=== PATIENT | female | born 1930 | race Caucasian/White ===

== ENCOUNTER → 2016-07-17 | Outpatient (CLI) | payer MEDICARE, BC | LOC: YCHH 13:01 | PROVIDERS: ATTEND Family Medicine | DX: N39.0 Urinary tract infection, site not specified (principal); R50.9 Fever, unspecified ==

== ENCOUNTER → 2016-08-04 | Outpatient (CLI) | payer MEDICARE, BC | LOC: YCHH 10:06 | PROVIDERS: ATTEND Family Medicine | DX: D51.8 Other vitamin B12 deficiency anemias (principal); I10 Essential (primary) hypertension; E78.5 Hyperlipidemia, unspecified; D64.9 Anemia, unspecified; D50.9 Iron deficiency anemia, unspecified; R79.89 Other specified abnormal findings of blood chemistry; E03.9 Hypothyroidism, unspecified; N39.0 Urinary tract infection, site not specified ==

== ENCOUNTER → 2016-08-14 | Outpatient (CLI) | payer MEDICARE, BC | END | disposition home or self-care (01) | LOC: GMAM 10:37 | PROVIDERS: ATTEND Family Medicine | DX: N39.0 Urinary tract infection, site not specified (principal) ==

== ENCOUNTER → 2016-09-07 | Outpatient (CLI) | payer MEDICARE, BC | END | disposition home or self-care (01) | LOC: GMAM 09:57 | PROVIDERS: ATTEND Family Medicine | DX: N39.0 Urinary tract infection, site not specified (principal); R11.0 Nausea ==

== ENCOUNTER → 2016-09-09 | Outpatient (CLI) | payer MEDICARE, BC | END | disposition home or self-care (01) | LOC: YCHH 14:57 | PROVIDERS: ATTEND Family Medicine | DX: R70.0 Elevated erythrocyte sedimentation rate (principal); R79.82 Elevated C-reactive protein (CRP) ==

== ENCOUNTER → 2016-09-10 | Outpatient (CLI) | payer MEDICARE, BC ==
--- NOTE | 2016-09-10 09:24 | CT ---
EXAM DESCRIPTION: Abdomen/Pelvis w/wo Contrast CLINICAL HISTORY: ABDOMINAL PAIN COMPARISON: None. TECHNIQUE: CT of the abdomen and pelvis was performed with and without IV contrast. Multiple axial images and multiplanar reconstructions were generated. FINDINGS: Lung bases are clear. Moderate hiatal hernia noted. The spleen, bilateral adrenal glands and liver are unremarkable. Gallbladder is present. The pancreas is unremarkable. Atherosclerotic disease of the abdominal aorta and IVC. The small bowel is nonobstructed. Severe diverticulosis of the colon noted. Patient status post hysterectomy. S-shaped scoliosis of the thoracolumbar spine noted. IMPRESSION: 1. There is atherosclerosis of the nonaneurysmal abdominal aorta, diverticulosis of the colon and spondylosis of the thoracolumbar spine. 2. Moderate-sized hiatal hernia. 3. No inflammatory changes within the abdomen or pelvis to account for patient's abdominal pain. Electronically signed by: Ronal Nails MD 09/10/2016 9:23 AM DIRECTOR OF CONSTRUCTION
== END | disposition home or self-care (01) ==
LOC: CT 07:52
PROVIDERS: ATTEND Family Medicine
DX: K57.30 Diverticulosis of large intestine without perforation or abscess without bleeding (principal)

== ENCOUNTER → 2017-01-30 | Outpatient (CLI) | payer MEDICARE, BC | LOC: YCHH 18:47 | PROVIDERS: ATTEND Family Medicine | DX: N39.0 Urinary tract infection, site not specified (principal) ==

== ENCOUNTER 2017-01-31 08:56 | Emergency (ER) | payer MEDICARE, BC ==
[2017-01-31] MEDS ORDERED: ONDANSETRON INJ 4 MG/2 ML VIAL IV ONE (09:10)
[2017-01-31] MEDS ORDERED: SODIUM CHLORIDE 0.9% 1000ML 1,000 ML IVS ONE (09:10)
--- NOTE | 2017-01-31 09:15 | ED.PDOC ---
History of Present Illness - General Chief Complaint: Fever Stated Complaint: weakness, fever Time Seen by Provider: 01/31/17 09:01 Source: patient, RN notes reviewed, Vital Signs reviewed, family - and sister Exam Limitations: no limitations - History of Present Illness Initial Comments: Patient comes in with c/o of UTI and not feeling well. She was seen by home health yesterday and had a UA done which was + for Nitrates & bacteria. No medications started. She has had a low grade fever, malaise, bodyaches, nausea and dysuria for 2 days. She has a history of frequent UTI's and is on Macrobid daily. Timing/Duration: getting worse - over past 2 days Severity: moderate Improving Factors: nothing Worsening Factors: nothing Associated Symptoms: fever/chills, loss of appetite, malaise, nausea/vomiting, weakness Allergies/Adverse Reactions: Allergies Ciprofloxacin [From Cipro] Allergy (Verified 06/14/16 09:41) Nausea Codeine Adverse Reaction (Verified 06/14/16 09:41) Home Medications: Ambulatory Orders Celecoxib [Celebrex] 200 mg PO DAILY 03/23/13 Aspirin [Aspirin EC] 81 mg PO BEDTIME 03/01/15 Bifidobacterium Infantis [Align] 4 mg PO DAILY 03/01/15 HYDROcodone 10MG/APAP 325MG [[place] 10/325] 1 tab PO QID PRN 03/01/15 Cyanocobalamin Inj [Vitamin B-12 Inj] 1,000 mcg IM MONTHLY 05/05/16 Lisinopril 10 mg PO DAILY PRN 05/05/16 Memantine HCl [Namenda] 5 mg PO DAILY 05/05/16 Multiple Vitamin [Multi Vitamin] 1 tab PO DAILY 05/05/16 Pantoprazole Tablet [Protonix] 40 mg PO DAILY 05/05/16 Calcium 600 mg PO BEDTIME 06/14/16 Pregabalin [Lyrica] 100 mg PO BEDTIME 06/14/16 Sulfa/Trimeth 800/160 (Ds) Tab [Bactrim DS Tab] 1 ea PO BID #14 tab 01/31/17 Review of Systems - Review of Systems Constitutional: States: chills, fever, malaise, weakness Respiratory: States: no symptoms reported Cardiology: States: no symptoms reported Gastrointestinal/Abdominal: States: nausea. Denies: abdominal pain, diarrhea, vomiting Genitourinary: States: see HPI, dysuria, frequency, pain Musculoskeletal: States: see HPI - Body aches Skin: States: no symptoms reported Neurological: States: no symptoms reported All other Systems: No Change from Baseline Past Medical History (General) - Patient Medical History Hx Seizures: No Hx Stroke: No Hx Dementia: Yes Hx Asthma: No Hx of COPD: No Hx Cardiac Disorders: Yes - CT with CABG Hx Congestive Heart Failure: No Hx Pacemaker: No Hx Hypertension: Yes Hx Thyroid Disease: No Hx Diabetes: No Hx Gastroesophageal Reflux: Yes Hx Renal Disease: No Hx Cancer: No Hx of HIV: No Hx Hepatitis C: No Hx MRSA: No - Vaccination History Hx Tetanus, Diphtheria Vaccination: Yes Hx Influenza Vaccination: Yes Hx Pneumococcal Vaccination: Yes - Social History Hx Tobacco Use: No Hx Chewing Tobacco Use: No Hx Alcohol Use: No Hx Substance Use: No Hx Substance Use Treatment: No Hx Depression: No Hx Physical Abuse: No Hx Emotional Abuse: No Hx Suspected Abuse: No - Female History Patient : No Family Medical History - Family History Mother Family History: Unknown Name: Jazz Puri Age (years): 87 Living Status: Age at (years of age): 87 Cause of : unknown Hx Family Asthma: No Hx Family Congestive Heart Failure: Yes - Parents Hx Family Hypertension: Yes - Parents Hx Family Stroke: No Hx Cardiac Disease: Yes - Parents Hx Family Diabetes: No Hx Family Cancer: No Physical Exam - Physical Exam General Appearance: Alert, Comfortable, Frail, No apparent distress, Well Developed, Well Groomed, Well Nourished Neck: non-tender, supple, normal inspection Respiratory: chest non-tender, lungs clear, normal breath sounds, no respiratory distress, no accessory muscle use Cardiovascular/Chest: regular rate, rhythm, no edema, no JVD, systolic murmur Gastrointestinal/Abdominal: normal bowel sounds, soft, tenderness - mild, suprapubic tenderness w/o guarding or rebound Extremity: normal range of motion, normal inspection Neurologic: alert, normal mood/affect, oriented x 3 Skin Exam: normal color, warm/dry Comments: Vital Signs 01/31/17 09:03 Temperature 98.1 F Pulse Rate [ 87 Left Radial] Respiratory 16 Rate Blood Pressure 178/84 [Left Arm] O2 Sat by Pulse 98 Oximetry Progress - Results/Orders Results/Orders: Laboratory Tests 01/31/17 01/31/17 09:19 09:19 WBC 8.3 RBC 4.47 Hgb 13.8 Hct 41.1 MCV 91.9 MCH 30.8 MCHC 33.5 RDW 13.1 Plt Count 341 MPV 9.3 Absolute Neuts (auto) 6.30 Absolute Lymphs (auto) 1.20 Absolute Monos (auto) 0.70 Absolute Eos (auto) 0.10 Absolute Basos (auto) 0.10 Neutrophils % 75.5 Lymphocytes % 14.4 L Monocytes % 8.0 Eosinophils % 1.2 Basophils % 0.9 Sodium 137 Potassium 3.7 Chloride 100 L Carbon Dioxide 26 Anion Gap 14.7 BUN 10 Creatinine 0.87 BUN/Creatinine Ratio 11.5 Random Glucose 120 H Serum Osmolality 274.1 L Calcium 9.7 Total Bilirubin 0.9 AST 25 ALT 15 Alkaline Phosphatase 54 Serum Total Protein 7.5 Albumin 4.6 Globulin 2.9 Albumin/Globulin Ratio 1.6 Urine Culture from yesterday is growing Gram negative rods. Started on Bactrim DS Departure - Departure Clinical Impression: UTI (urinary tract infection) Qualifiers: Urinary tract infection type: acute cystitis Hematuria presence: without hematuria Qualified Code(s): N30.00 - Acute cystitis without hematuria Time of Disposition: 10:43 Disposition: Discharge to Home or Self Care Condition: Good Departure Forms: ED Discharge - Pt. Copy, Patient Portal Self Enrollment Instructions: DI for Urinary Tract Infection (UTI) Diet: resume usual diet Activity: increase activity as tolerated Referrals: Pankaj Goetz MD [Primary Care Provider] - 1-2 Weeks Prescriptions: Sulfa/Trimeth 800/160 (Ds) Tab [Bactrim DS Tab] 1 ea PO BID #14 tab Home Medications: Ambulatory Orders Celecoxib [Celebrex] 200 mg PO DAILY 03/23/13 Aspirin [Aspirin EC] 81 mg PO BEDTIME 03/01/15 Bifidobacterium Infantis [Align] 4 mg PO DAILY 03/01/15 HYDROcodone 10MG/APAP 325MG [[place] 10/325] 1 tab PO QID PRN 03/01/15 Cyanocobalamin Inj [Vitamin B-12 Inj] 1,000 mcg IM MONTHLY 05/05/16 Lisinopril 10 mg PO DAILY PRN 05/05/16 Memantine HCl [Namenda] 5 mg PO DAILY 05/05/16 Multiple Vitamin [Multi Vitamin] 1 tab PO DAILY 05/05/16 Pantoprazole Tablet [Protonix] 40 mg PO DAILY 05/05/16 Calcium 600 mg PO BEDTIME 06/14/16 Pregabalin [Lyrica] 100 mg PO BEDTIME 06/14/16 Sulfa/Trimeth 800/160 (Ds) Tab [Bactrim DS Tab] 1 ea PO BID #14 tab 01/31/17
[2017-01-31] MEDS ORDERED: SULFA/TRIMETH 800/160 (DS) TAB 1 EA TAB PO ONE (09:42)
[2017-01-31 10:49] VITALS: BP 157/88; TEMP 99.1; O2SAT 98
== END 2017-01-31 10:57 | disposition home or self-care (01) ==
LOC: ER 08:56
DX: N30.00 Acute cystitis without hematuria (principal); I25.2 Old myocardial infarction; F03.90 Unspecified dementia, unspecified severity, without behavioral disturbance, psychotic disturbance, mood disturbance, and anxiety; I10 Essential (primary) hypertension; K21.9 Gastro-esophageal reflux disease without esophagitis; Z95.1 Presence of aortocoronary bypass graft; Z88.3 Allergy status to other anti-infective agents; Z88.6 Allergy status to analgesic agent; Z79.82 Long term (current) use of aspirin; Z79.899 Other long term (current) drug therapy
CPT/HCPCS: 36415; 80053; 85025; J2405; J7030

== ENCOUNTER → 2017-02-11 | Outpatient (CLI) | payer MEDICARE, BC | END | disposition home or self-care (01) | LOC: YCHH 11:38 | PROVIDERS: ATTEND Family Medicine | DX: N39.0 Urinary tract infection, site not specified (principal) ==

== ENCOUNTER → 2017-02-15 | Outpatient (CLI) | payer MEDICARE, BC | END | disposition home or self-care (01) | LOC: YCHH 15:52 | PROVIDERS: ATTEND Family Medicine | DX: N39.0 Urinary tract infection, site not specified (principal) ==

== ENCOUNTER → 2017-03-17 | Outpatient (CLI) | payer MEDICARE, BC | END | disposition home or self-care (01) | LOC: YCHH 16:34 | PROVIDERS: ATTEND Family Medicine | DX: N39.0 Urinary tract infection, site not specified (principal) ==

== ENCOUNTER → 2017-03-23 | Outpatient (CLI) | payer MEDICARE, BC | END | disposition home or self-care (01) | LOC: YCHH 09:42 | PROVIDERS: ATTEND Family Medicine | DX: D64.9 Anemia, unspecified (principal); E78.5 Hyperlipidemia, unspecified; I10 Essential (primary) hypertension; K21.9 Gastro-esophageal reflux disease without esophagitis ==

== ENCOUNTER → 2017-04-19 | Outpatient (CLI) | payer MEDICARE, BC | END | disposition home or self-care (01) | LOC: YCHH 11:41 | PROVIDERS: ATTEND Family Medicine | DX: N39.0 Urinary tract infection, site not specified (principal) ==

== ENCOUNTER → 2017-04-20 | Outpatient (CLI) | payer MEDICARE, BC ==
--- NOTE | 2017-04-21 14:05 | RAD ---
Frontal view pelvis and two-view left hip. Indication: PAIN IN LT HIP Comparison: February 25, 2016 Impression: Osteopenia. Given this limitation, no discrete fracture of the pelvis or the left hip identified. If high clinical concern for fracture, correlation with MRI or CT recommended. Mild bilateral hip osteoarthritis. Mild bilateral sacroiliac joint osteoarthritis. Lower lumbar disc disease. Electronically signed by: Og Li MD 04/21/2017 2:04 PM CDT
== END | disposition home or self-care (01) ==
LOC: RAD 14:09
PROVIDERS: ATTEND Orthopaedic Surgery
DX: M25.552 Pain in left hip (principal)

== ENCOUNTER → 2017-05-19 | Outpatient (CLI) | payer MEDICARE, BC | END | disposition home or self-care (01) | LOC: YCHH 10:13 | PROVIDERS: ATTEND Family Medicine | DX: N39.0 Urinary tract infection, site not specified (principal) ==

== ENCOUNTER → 2017-06-05 | Outpatient (CLI) | payer MEDICARE, BC | END | disposition home or self-care (01) | LOC: YCHH 14:24 | PROVIDERS: ATTEND Family Medicine | DX: N39.0 Urinary tract infection, site not specified (principal) ==

== ENCOUNTER → 2017-07-10 | Outpatient (CLI) | payer MEDICARE, BC | END | disposition home or self-care (01) | LOC: YCHH 12:26 | PROVIDERS: ATTEND Family Medicine | DX: N39.0 Urinary tract infection, site not specified (principal) ==

== ENCOUNTER → 2017-08-03 | Outpatient (CLI) | payer MEDICARE, BC | LOC: GMAM 18:07 | PROVIDERS: ATTEND Family Medicine | DX: F03.90 Unspecified dementia, unspecified severity, without behavioral disturbance, psychotic disturbance, mood disturbance, and anxiety (principal); R30.0 Dysuria ==

== ENCOUNTER 2017-08-06 10:38 | Outpatient (CLI) | payer MEDICARE, BC ==
[2017-08-06] MEDS ORDERED: methylPREDNISolone SODIUM SUC 40 MG/ML VIAL IV ONE ×2 (10:58→14:23)
[2017-08-06] MEDS ORDERED: ACETAMINOPHEN 325 MG TAB PO ONE ×2 (11:04→14:23)
[2017-08-06] MEDS ORDERED: SODIUM CHLORIDE 0.9% 500ML 500 ML IVS ONE (11:07)
[2017-08-06] MEDS ORDERED: FUROSEMIDE INJ 40 MG/4 ML VIAL IV ONE ×2 (11:11→17:36)
[2017-08-06] MEDS ORDERED: diphenhydrAMINE HCL 50 MG/ML VIAL IV ONE ×2 (12:02→14:23)
[2017-08-06 20:56] VITALS: BP 133/79; TEMP 96.4; O2SAT 96
== END 2017-08-06 20:55 | disposition home or self-care (01) ==
LOC: TXRM 10:38
PROVIDERS: ATTEND Family Medicine
DX: D64.9 Anemia, unspecified (principal)
CPT/HCPCS: 36415; 86850; 86900; 86901; 86922; G0463; J1030; J1200; J1940; J7040; P9016

== ENCOUNTER → 2017-08-12 | Outpatient (CLI) | payer MEDICARE, BC | LOC: GMAM 19:13 | PROVIDERS: ATTEND Family Medicine | DX: D64.9 Anemia, unspecified (principal) ==

== ENCOUNTER → 2017-08-19 | Outpatient (CLI) | payer MEDICARE, BC | LOC: YCHH 11:19 | PROVIDERS: ATTEND Family Medicine | DX: D64.9 Anemia, unspecified (principal) ==

== ENCOUNTER → 2017-09-13 | Outpatient (CLI) | payer MEDICARE, BC | LOC: GMAM 12:06 | PROVIDERS: ATTEND Family Medicine | DX: R30.0 Dysuria (principal); N39.0 Urinary tract infection, site not specified ==

== ENCOUNTER → 2017-09-21 | Outpatient (CLI) | payer MEDICARE, BC | LOC: GMAHI 16:42 | PROVIDERS: ATTEND Nurse Practitioner Family | DX: N30.00 Acute cystitis without hematuria (principal) ==

== ENCOUNTER → 2017-10-25 | Outpatient (CLI) | payer MEDICARE, BC | LOC: YCHH 12:32 | PROVIDERS: ATTEND Family Medicine | DX: D64.9 Anemia, unspecified (principal); R79.89 Other specified abnormal findings of blood chemistry; N39.0 Urinary tract infection, site not specified ==

== ENCOUNTER 2017-11-01 05:33 | Observation (INO) | payer MEDICARE, BC ==
--- NOTE | 2017-11-01 05:46 | ED.PDOC ---
History of Present Illness - General Source: patient, family - Exam Limitations: no limitations - History of Present Illness Initial Comments: Laura Suresh ,87 y/o female brought by family w/bodyaches generalized has chronic back pains,restless, did not sleep last night ,felt nauseated but no vomiting .Had iron infusion 3 days ago for her chronic anemia and taking Macrobid for UTI.She has DNR signed by patient. Timing/Duration: 24 hours Severity: moderate Improving Factors: nothing Worsening Factors: other - see hpi Associated Symptoms: other - see hpi <Scar Shahid R - Last Filed: 11/01/17 06:01> <Vish Kc H - Last Filed: 11/01/17 12:35> - General Chief Complaint: General Stated Complaint: restless,hurting all over Time Seen by Provider: 11/01/17 05:39 - History of Present Illness Allergies/Adverse Reactions: Allergies Ciprofloxacin [From Cipro] Allergy (Verified 06/14/16 09:41) Nausea Codeine Adverse Reaction (Verified 06/14/16 09:41) Home Medications: Ambulatory Orders Celecoxib [Celebrex] 200 mg PO DAILY 03/23/13 Aspirin [Aspirin EC] 81 mg PO BEDTIME 03/01/15 Bifidobacterium Infantis [Align] 4 mg PO DAILY 03/01/15 HYDROcodone 10MG/APAP 325MG [[place] 10/325] 1 tab PO QID PRN 03/01/15 Cyanocobalamin Inj [Vitamin B-12 Inj] 1,000 mcg IM MONTHLY 05/05/16 Lisinopril 10 mg PO DAILY PRN 05/05/16 Memantine HCl [Namenda] 5 mg PO DAILY 05/05/16 Multiple Vitamin [Multi Vitamin] 1 tab PO DAILY 05/05/16 Pantoprazole Tablet [Protonix] 40 mg PO DAILY 05/05/16 Calcium 600 mg PO BEDTIME 06/14/16 Pregabalin [Lyrica] 100 mg PO BEDTIME 06/14/16 Nitrofurantoin Macrocrystal [Macrodantin] 100 mg PO 11/01/17 Review of Systems - Review of Systems Constitutional: States: malaise EENTM: States: no symptoms reported Respiratory: States: no symptoms reported Cardiology: States: no symptoms reported Gastrointestinal/Abdominal: States: no symptoms reported Genitourinary: States: no symptoms reported, see HPI Musculoskeletal: States: no symptoms reported Skin: States: no symptoms reported Neurological: States: no symptoms reported Hematologic/Lymphatic: States: see HPI, anemia All other Systems: Reviewed and Negative, No Change from Baseline <Scar Shahid R - Last Filed: 11/01/17 06:01> Past Medical History (General) - Patient Medical History Hx Seizures: No Hx Stroke: No Hx Dementia: Yes Hx Asthma: No Hx of COPD: No Hx Cardiac Disorders: Yes - PR with CABG Hx Congestive Heart Failure: No Hx Pacemaker: No Hx Hypertension: Yes Hx Thyroid Disease: No Hx Diabetes: No Hx Gastroesophageal Reflux: Yes Hx Renal Disease: No Hx Cancer: No Hx of HIV: No Hx Hepatitis C: No Hx MRSA: No Surgical History: appendectomy, coronary bypass surgery, other - right knee ankle - Vaccination History Hx Tetanus, Diphtheria Vaccination: Yes Hx Influenza Vaccination: Yes Hx Pneumococcal Vaccination: Yes - Social History Hx Tobacco Use: No Hx Chewing Tobacco Use: No Hx Alcohol Use: No Hx Substance Use: No Hx Substance Use Treatment: No Hx Depression: No Hx Physical Abuse: No Hx Emotional Abuse: No Hx Suspected Abuse: No - Activities of Daily Living Patient Lives Alone: No Grooming Ability: Standby Assistance Eating (Feeding) Ability: Standby Assistance Toileting Ability: Standby Assistance - Female History Patient : No <Scar Shahid R - Last Filed: 11/01/17 06:01> Family Medical History - Family History Mother Family History: Unknown Name: Jazz Puri Age (years): 87 Living Status: Age at (years of age): 87 Cause of : unknown Hx Family Asthma: No Hx Family Congestive Heart Failure: Yes - Parents Hx Family Hypertension: Yes - Parents Hx Family Stroke: No Hx Cardiac Disease: Yes - Parents Hx Family Diabetes: No Hx Family Cancer: No <Scar Shahid R - Last Filed: 11/01/17 06:01> Physical Exam - Physical Exam General Appearance: Alert, No apparent distress Eye Exam: bilateral normal Ears, Nose, Throat: hearing grossly normal, normal ENT inspection Neck: non-tender, supple Respiratory: chest non-tender, lungs clear, normal breath sounds Cardiovascular/Chest: normal peripheral pulses, regular rate, rhythm, systolic murmur - g4/6 Peripheral Pulses: radial,right: 2+, radial,left: 2+ Gastrointestinal/Abdominal: soft, no organomegaly Back Exam: no CVA tenderness, no vertebral tenderness Extremity: no pedal edema, no calf tenderness Neurologic: alert, oriented x 3 Skin Exam: normal color, warm/dry <Scar Shahid R - Last Filed: 11/01/17 06:01> Progress - Progress Progress: 11/01/17 06:30 Vital Signs - 8 hr 11/01/17 11/01/17 05:56 06:03 Temperature 99.1 F Pulse Rate [ 98 H Right] Respiratory 18 18 Rate Blood Pressure 150/70 [Left Arm] O2 Sat by Pulse 93 L Oximetry <Scar Shahid R - Last Filed: 11/01/17 06:01> - Progress Progress: 11/01/17 8:30 PT IS RESTING COMFORTABLY, VITALS REMAIN UNCHANGED. DISCUSSED PLAN WITH PT AND FAMILY TO TRANSFUSE PRBC. 11/01/17 12:15 STOOL GUIAC TESTING DONE REVEALING DARK TARRY STOOL-HEMMOCULT POSITIVE - Results/Orders Results/Orders: 11/01/17 06:02 IV Care:Saline Lock per Protoc QSHIFT Laboratory Results - last 24 hr 11/01/17 11/01/17 11/01/17 06:02 06:02 06:30 WBC 9.2 RBC 2.68 L Hgb 7.1 L* Hct 21.6 L MCV 80.7 L MCH 26.4 L MCHC 32.8 L RDW 19.0 H Plt Count 313 MPV 9.7 Absolute Neuts (auto) 7.50 H Absolute Lymphs (auto) 0.70 L Absolute Monos (auto) 0.70 Absolute Eos (auto) 0.20 Absolute Basos (auto) 0.10 Neutrophils % 81.6 H Lymphocytes % 7.9 L Monocytes % 7.5 Eosinophils % 2.3 Basophils % 0.7 Sodium 137 Potassium 3.8 Chloride 106 Carbon Dioxide 26 Anion Gap 8.8 L BUN 14 Creatinine 0.82 BUN/Creatinine Ratio 17.1 Random Glucose 121 H Serum Osmolality 275.5 Calcium 8.7 Total Bilirubin 0.5 AST 23 ALT 13 Alkaline Phosphatase 51 Serum Total Protein 6.5 Albumin 3.8 Globulin 2.7 Albumin/Globulin Ratio 1.4 Urine Color Urine Appearance Urine pH Ur Specific [place] Urine Protein Urine Glucose (UA) Urine Ketones Urine Blood Urine Nitrite Urine Bilirubin Urine Urobilinogen Ur Leukocyte Esterase Urine RBC Urine WBC Ur Epithelial Cells Urine Bacteria Stool Occult Blood Patient ABO/Rh A NEGATIVE Antibody Screen Negative Crossmatch See Detail 11/01/17 11/01/17 11:57 Unknown WBC RBC Hgb Hct MCV MCH MCHC RDW Plt Count MPV Absolute Neuts (auto) Absolute Lymphs (auto) Absolute Monos (auto) Absolute Eos (auto) Absolute Basos (auto) Neutrophils % Lymphocytes % Monocytes % Eosinophils % Basophils % Sodium Potassium Chloride Carbon Dioxide Anion Gap BUN Creatinine BUN/Creatinine Ratio Random Glucose Serum Osmolality Calcium Total Bilirubin AST ALT Alkaline Phosphatase Serum Total Protein Albumin Globulin Albumin/Globulin Ratio Urine Color Yellow Urine Appearance Clear Urine pH 7.0 Ur Specific [place] 1.015 Urine Protein Negative Urine Glucose (UA) Negative Urine Ketones 15 H Urine Blood Negative Urine Nitrite Negative Urine Bilirubin Negative Urine Urobilinogen 0.2 Ur Leukocyte Esterase Negative Urine RBC 0 Urine WBC 0 Ur Epithelial Cells 0 Urine Bacteria 0 Stool Occult Blood Positive Patient ABO/Rh Antibody Screen Crossmatch - Consult/PCP Time Called: 09:30 Consult/PCP: DR. ANJELICA GOETZ Consult Reason/Comments: CASE DISCUSSED. AGREES WITH PLAN TO TRANSFUSE. WILL COME TO ED SEE PT. <Vish Kc H - Last Filed: 11/01/17 12:35> Departure <Scar Shahid - Last Filed: 11/01/17 06:01> - Departure Time of Disposition: 12:34 <Vish Kc - Last Filed: 11/01/17 12:35> - Departure Clinical Impression: Weakness, Myalgia, GI bleed, Anemia Disposition: Admit Patient Condition: Fair Departure Forms: ED Discharge - Pt. Copy, Patient Portal Self Enrollment Referrals: Pankaj Goetz MD [Primary Care Provider] - 1-2 Weeks Home Medications: Ambulatory Orders Celecoxib [Celebrex] 200 mg PO DAILY 03/23/13 Aspirin [Aspirin EC] 81 mg PO BEDTIME 03/01/15 Bifidobacterium Infantis [Align] 4 mg PO DAILY 03/01/15 HYDROcodone 10MG/APAP 325MG [[place] 10/325] 1 tab PO QID PRN 03/01/15 Cyanocobalamin Inj [Vitamin B-12 Inj] 1,000 mcg IM MONTHLY 05/05/16 Lisinopril 10 mg PO DAILY PRN 05/05/16 Memantine HCl [Namenda] 5 mg PO DAILY 05/05/16 Multiple Vitamin [Multi Vitamin] 1 tab PO DAILY 05/05/16 Pantoprazole Tablet [Protonix] 40 mg PO DAILY 05/05/16 Calcium 600 mg PO BEDTIME 06/14/16 Pregabalin [Lyrica] 100 mg PO BEDTIME 06/14/16 Nitrofurantoin Macrocrystal [Macrodantin] 100 mg PO 11/01/17 Decision To Admit - Decistion To Admit Decision to Admit Reason: Admit from ER Decision to Admit Date: 11/01/17 Decision to Admit Time: 12:35 - CASE DISCUSSED WITH DR. GOETZ AND CRISTIAN HIDALGO ATLASSIAN ADMINISTRATOR WHO AGREE TO ADMIT. <Vish Kc - Last Filed: 11/01/17 12:35>
[2017-11-01] MEDS ORDERED: fentaNYL CITRATE INJ 50 MCG/ML AMP IV ONE ×3 (06:02→13:51)
[2017-11-01] MEDS ORDERED: LORazepam 0.5 MG TAB PO ONE (06:32)
[2017-11-01] MEDS ORDERED: SODIUM CHLORIDE 0.9% 500ML 500 ML ONE (07:55)
[2017-11-01] MEDS ORDERED: fentaNYL CITRATE INJ 50 MCG/ML AMP ONE (11:09)
[2017-11-01] MEDS ORDERED: ONDANSETRON INJ 4 MG/2 ML VIAL IV ONE (12:48)
--- NOTE | 2017-11-01 13:46 | HP ---
SUPERVISING PHYSICIAN: Pankaj Goetz MD CHIEF COMPLAINT: Anemia. HISTORY OF PRESENT ILLNESS: Ms. Suresh is an 87-year-old, female patient who presented to the Emergency Room with her family by private vehicle complaining of generalized body aches and some chronic back pain. She had noted she had some nausea, but has not had any emesis. She has a history of iron deficiency anemia and has recently started iron infusions three days previously and is also taking Macrobid for a previous urinary tract infection. Her lab work in the Emergency Room showed she is significantly anemic with a hemoglobin 7.1, hematocrit 21.6, platelet count 313,000. Differential did show a slight left shift. White count was within normal limits at 9,200. Chemistries were unremarkable. Urinalysis showed 15 ketones, otherwise within normal limits. She had a workup in blood bank and was transfused 2 units of packed red blood cells in the Emergency Room with anticipation of being discharged home with close followup, but while in the Emergency Room had a large , black, tarry stool bowel movement and it was positive for occult blood. Dr. Kc, Emergency Room physician, discussed the case with Dr. Goetz, her primary care physician, and it was felt best that the patient be placed in observation status overnight to further monitor her hemoglobin and hematocrit and ensure that she was not having an acute blood loss event. She was placed in observation in stable condition. PAST MEDICAL HISTORY: 1. Chronic anemia due to iron deficiency. 2. Recurring urinary tract infections, recently on Macrobid. 3. Coronary artery disease with a history of myocardial infarctions and her last echocardiogram showing ejection fraction of 60% from July of 2013. 4. Hyperlipidemia. 5. Hypertension. 6. Aortic valve stenosis with a significant cardiac murmur. 7. Diverticulosis. 8. Osteoarthritis. 9. Cervical spine stenosis. 10. Mild dementia. 11. Infectious colitis. PAST SURGICAL HISTORY: 1. Coronary artery bypass grafting of three vessels in 2004 and again in 2011. 2. Ankle replacement in September 2004. 3. Hysterectomy with bilateral salpingo-oophorectomy in 1971. 4. Multiple epidural injections of the spine for chronic pain management. 5. Right total knee arthroplasty in 2011. CURRENT MEDICATIONS: 1. Multivitamin 1 tablet daily. 2. [place] 10/325 1 tablet q.i.d. as needed for pain. 3. Vitamin B12 injection 1000 mcg monthly. 4. Lyrica 100 mg t.i.d. 5. Protonix 40 mg daily. 6. Namenda 5 mg daily. 7. Lisinopril 10 mg daily. 8. Celebrex 200 mg daily. 9. Calcium 600 mg at bedtime. 10. Align 4 mg daily. 11. Aspirin 81 mg daily. ALLERGIES: CIPROFLOXACIN. FAMILY HISTORY: Positive for congestive heart failure, coronary artery disease and cancers. SOCIAL HISTORY: The patient lives in [place] with her . She is retired. She has never smoked, nor has she ever used illicit drugs or alcohol. REVIEW OF SYSTEMS: CONSTITUTIONAL: Positive for general malaise and weakness. HEENT: No reported nasal congestion, sore throat, headache, earaches. RESPIRATORY: No shortness of breath, cough, wheezing. CARDIOVASCULAR: Denies lower extremity edema, chest pain, palpitations or syncopal episodes. GASTROINTESTINAL: As noted in history of present illness, some nausea with no vomiting. No reported abdominal pain. No reported constipation, diarrhea. MUSCULOSKELETAL: She has problems with restless legs, generalized malaise and chronic back pain. NEUROLOGIC: Denies syncope, seizures, ataxia or other neurologic symptoms. HEMATOLOGIC: As noted in history of present illness, chronic anemia, iron deficiency, with having recent iron infusion within the last three days. PHYSICAL EXAMINATION: VITAL SIGNS: Temperature 99.6. Pulse 86. Blood pressure 166/62. Saturation 94 %. Respirations 20. Weight 73.0 kg on admission. GENERAL: On examination on the Medical/Surgical Floor, the patient was quite anxious, restless, but appeared to be in no acute distress. She was well hydrated and alert. HEENT: Tympanic membranes clear bilaterally. Oropharynx is pink, moist without any lesions. NECK: Supple, nontender with full range of motion. No jugular venous distention noted. RESPIRATORY: Lungs clear to auscultation bilaterally without any rhonchi, wheezes, or rales. CARDIOVASCULAR: Regular rate and rhythm with a prominent systolic murmur, grade IV/, which is chronic. ABDOMEN: Soft, nontender. Positive bowel sounds. EXTREMITIES: There is no cyanosis, clubbing or edema. No calf tenderness. NEUROLOGIC: The patient is alert and oriented times three. Cranial nerves II- XII are grossly intact. Facial features are symmetrical. Extraocular movements are within normal limits. There is no nystagmus noted. LABORATORY: CBC showed white count 9,200, hemoglobin 7.1, hematocrit 21.6 with a macrocytic/hypochromic RBC presentation and platelet count 313,000. Differential did show a slight left shift. Chemistries showed normal electrolytes. BUN 14, creatinine 0.82, glucose 121, liver functions all within normal limits. Calcium within normal limits at 8.7. Urinalysis shows 15 ketones, otherwise within normal limits. She had one occult blood stool in the Emergency Room that was positive. MICROBIOLOGY: There were no specimens submitted. RADIOLOGY: No radiographic studies were submitted. ASSESSMENT: 1. Symptomatic anemia secondary to chronic iron deficiency anemia having recently started iron transfusions with occult blood being positive with concerns for acute blood loss requiring close monitoring. 2. History of recurrent urinary tract infections having recently finished a round of Macrobid with current urine being without evidence of infection. 3. Coronary artery disease with a history of previous myocardial infarctions and last ejection fraction noted on the chart of 60% in July of 2013. 4. Aortic valve stenosis with a significant cardiac murmur. 5. Hypertension. 6. Chronic back pain. 7. Chronic dementia with disability. PLAN: The patient will be placed in observation status tonight for close monitoring of her vital signs and repeat hemoglobin and hemoglobin at 12 hours and in the morning to ensure she is not having any acute blood loss. I have ordered occult bloods times three if she has any stools. She will be given pain management as needed for back pain and Benadryl and 20 mg Lasix post transfusion. We will resume her home medications once they have been updated and verified. She will be on DVT prophylaxis with SCDs only with concerns for lower GI bleed pending further workup before Lovenox is started. We will anticipate her stay to be 1 to 2 days with anticipation of discharging tomorrow if her hemoglobin and hematocrit are stable. Once discharged, she will continue with followup in the outpatient clinic with Dr. Goetz, her primary care provider. Until then, we will continue to monitor the patient closely and treat appropriately. #[id number] [facility]
[2017-11-01] MEDS ORDERED: PROMETHAZINE HCL INJ 12.5 MG in SODIUM CHLORIDE 0.9% 50ML 50 ML IVPB PRN (13:52)
[2017-11-01] MEDS ORDERED: PROMETHAZINE HCL INJ 25 MG/ML VIAL ONE (13:53)
[2017-11-01] MEDS ORDERED: SODIUM CHLORIDE 0.9% 50ML 50 ML ONE (13:53)
[2017-11-01] MEDS ORDERED: SODIUM CHLORIDE 0.9% (FLUSH) 10 ML SYG IV PRN (14:03)
[2017-11-01] MEDS ORDERED: ACETAMINOPHEN 325 MG TAB PO PRN (14:03)
[2017-11-01] MEDS ORDERED: IV SET AND CAP CHANGE INJ INJ SCH (14:30)
[2017-11-01] MEDS ORDERED: FUROSEMIDE INJ 20 MG/2 ML VIAL IV ONE (15:59)
[2017-11-01] MEDS ORDERED: PANTOPRAZOLE SODIUM IV 40 MG VIAL IV ONE (16:02)
[2017-11-01] MEDS ORDERED: PREGABALIN 100 MG CAP PO ONE (16:02)
[2017-11-01] MEDS ORDERED: tiZANidine 4 MG TAB PO ONE (16:03)
[2017-11-01] MEDS ORDERED: diphenhydrAMINE HCL 50 MG/ML VIAL IV ONE (16:04)
[2017-11-01] MEDS: HYDROcodone 10MG/APAP 325MG 1 EA TAB PO PRN (17:32)
[2017-11-01] MEDS ORDERED: LISINOPRIL 10 MG TAB PO ONE (19:41)
[2017-11-01] MEDS ORDERED: CALCIUM CARBONATE-VITAMIN D 500 MG TAB PO SCH (21:00)
--- NOTE | 2017-11-01 22:12 | PCM.CORE ---
Physician DVT/VTE - Contraindications Medication Contraindication: Medical Contraindication - Acute Anemia with POS occult blood stool - Nurse DVT Assessment & Total Each Risk Factor Represents 3 Points: Age over 75 years, Medical PT with Hx of OR, CHF, Severe infection/sepsis Each Risk Factor is 1 Point: Obesity (BMI >25) DVT Assessment Score: 7 - 5 or more Very High Risk Treatments: Early Ambulation *, Sequential Compression Device
[2017-11-02] MEDS: HYDROcodone 10MG/APAP 325MG 1 EA TAB PO PRN ×2 (03:00→09:00)
[2017-11-02] MEDS ORDERED: BIFIDOBACTERIUM INFANTIS 4 MG CAP PO SCH (09:00)
[2017-11-02] MEDS ORDERED: MEMANTINE 10 MG TAB PO SCH (09:00)
[2017-11-02] MEDS ORDERED: INSULIN, REG.(HUMAN) 100 U/ML VIAL ONE (09:21)
[2017-11-02] MEDS ORDERED: POLYETHYLENE GLYCOL 3350 17 GM PCKT PO ONE (09:59)
[2017-11-02] MEDS ORDERED: POLYETHYLENE GLYCOL 3350 17 GM PCKT ONE (10:02)
[2017-11-02 10:10] VITALS: BP 107/67; TEMP 98.1; O2SAT 91
--- NOTE | 2017-11-08 10:44 | DS ---
SUPERVISING PHYSICIAN: Pankaj Goetz MD DISCHARGE DIAGNOSIS: 1. 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 2. History of recurrent urinary tract infections having recently finished a round of Macrobid with current urine being without evidence of infection. 3. Coronary artery disease with a history of previous myocardial infarctions and last ejection fraction noted on the chart of 60% in July of 2013. 4. Aortic valve stenosis with a significant cardiac murmur. 5. Hypertension. 6. Chronic back pain. 7. Chronic dementia with disability. REASON FOR HOSPITALIZATION: Ms. Suresh is an 87-year-old, female patient who presented to the Emergency Room on the morning of 11/01/17 by private vehicle complaining of generalized body aches and some chronic back pain. She had noted she had some nausea, but had not had any emesis. She has a history of iron deficiency anemia and has recently started iron infusions three days previously and has also been taking Macrobid for a previous urinary tract infection. Her lab work in the Emergency Room showed a hemoglobin 7.1, hematocrit 21.6. Chemistries were unremarkable. Urinalysis was within normal limits except for a small amount of ketones. She had 2 units of packed red blood cells administered in the Emergency Room with anticipation of being discharged home, but while in the Emergency Room had a large, black, tarry stool bowel movement and it was positive for occult blood. Dr. Kc, Emergency Room physician, discussed the case with Dr. Goetz, her primary care physician, and it was felt best that the patient be placed in observation status overnight to further monitor her hemoglobin and hematocrit and ensure that she was not having an acute blood loss event. She was placed in observation in stable condition. LABORATORY: White count on admission was 9,200, hemoglobin 7.1, hematocrit 21.6 , platelet count 313,000. After 2 units of packed red blood cells on 11/01/16, hemoglobin was 11.8, hematocrit 34.9 and then on discharge, hemoglobin was 11.3 , hematocrit 34.5. Chemistries essentially within normal limits. Glucose slightly elevated at 121. Electrolytes normal. Urinalysis shows 15 ketones, otherwise within normal limits. She had one occult blood stool in the Emergency Room that was positive. RADIOLOGY: No radiographic studies were submitted. HOSPITAL COURSE: Ms. Suresh was seen in the Emergency Room as noted above and found to be anemic secondary to iron deficiency as well as some nausea which was felt to be secondary to a recent iron infusion. She was given 2 units of packed red blood cells, however, prior to discharge, she had a large bowel movement that was found to be black and tarry in nature and was positive for occult blood. Again, after further discussion between Dr. Kc and her primary care physician, Dr. Goetz, it was felt that the patient would be best served by being placed in observation status overnight to ensure she was having stable hemoglobin and not having acute blood loss. The patient was placed in observation. Hemoglobin and hematocrit were monitored closely. Her home medications were resumed as previous to hospitalization. She was started on proton pump inhibitor and her NSAIDs she normally was on were held. On the morning of discharge, her hemoglobin and hematocrit were found to be stable and she had no other bowel movements during the hospitalization. It was felt that she was stable enough to have followup in the clinic. PLAN: Ms. Suresh was discharged on 11/02/17 with instructions to have close clinical followup with Dr. Goetz on 11/08/17 at 10:30 AM. She was to have an iron infusion on Wednesday which was cancelled per Dr. Goetz. She was to resume her home medications as instructed, but told to avoid NSAIDs and stop her Celebrex. She was to return to the hospital should she have any concerning symptoms or further tarry stools or any other significant symptoms. No new medications were prescribed at discharge. Diet at discharge was regular as tolerated. Activity as tolerated. Condition at discharge was stable and improved. #[id number] [facility]
== END 2017-11-02 10:45 | disposition home or self-care (01) ==
LOC: ER 05:33 → MS 13:44
PROVIDERS: ADMIT Nurse Practitioner Family; ATTEND Nurse Practitioner Family
DX: D50.9 Iron deficiency anemia, unspecified (principal); R19.5 Other fecal abnormalities; I25.10 Atherosclerotic heart disease of native coronary artery without angina pectoris; I35.0 Nonrheumatic aortic (valve) stenosis; R01.1 Cardiac murmur, unspecified; I10 Essential (primary) hypertension; G89.29 Other chronic pain; M54.9 Dorsalgia, unspecified; F03.90 Unspecified dementia, unspecified severity, without behavioral disturbance, psychotic disturbance, mood disturbance, and anxiety; E78.5 Hyperlipidemia, unspecified; I25.2 Old myocardial infarction; Z66 Do not resuscitate; Z87.440 Personal history of urinary (tract) infections; Z95.1 Presence of aortocoronary bypass graft; Z79.891 Long term (current) use of opiate analgesic; Z79.82 Long term (current) use of aspirin; Z79.899 Other long term (current) drug therapy; Z88.1 Allergy status to other antibiotic agents; Z88.6 Allergy status to analgesic agent; Z82.49 Family history of ischemic heart disease and other diseases of the circulatory system
CPT/HCPCS: 96365; 96375 ×2; 96376 ×2; J1200; J3010 ×3; J1940; J2405; J2550; J7040; A4216; 82270; 80053; 85014 ×2; 85018 ×2; 36415 ×4; 81001; 85025; P9016 ×2; 86922 ×2; 86900; 86901; 86850; 94760 ×2; 99285; G0378

== ENCOUNTER → 2017-11-08 | Outpatient (CLI) | payer MEDICARE, BC | LOC: GMAM 14:09 | PROVIDERS: ATTEND Family Medicine | DX: E55.9 Vitamin D deficiency, unspecified (principal) ==

== ENCOUNTER 2017-11-10 10:46 | Emergency (ER) | payer MEDICARE, BC ==
[2017-11-10 10:56] VITALS: TEMP 99.1
--- NOTE | 2017-11-10 11:03 | ED.PDOC ---
History of Present Illness - General Chief Complaint: Blood Pressure Problem Stated Complaint: elevated blood pressure,nausea Time Seen by Provider: 11/10/17 10:52 Source: family Exam Limitations: no limitations - History of Present Illness Initial Comments: Duong Suresh 87 y/o female brought by after a home health nurse visit noted elevated blood pressure ,feeling nauseated and refusal to drink since yesterday.No N/V/D.afebrile.Has chronic anemia receiving iron infusion and was recently admitted here for positve FOBT and hgb-7.1 received 2 units of blood transfusion here in hospital. Timing/Duration: 4-6 hours Severity: moderate Improving Factors: nothing Worsening Factors: nothing Associated Symptoms: denies symptoms Allergies/Adverse Reactions: Allergies Ciprofloxacin [From Cipro] Allergy (Verified 11/01/17 14:45) Nausea Home Medications: Ambulatory Orders Aspirin [Aspirin EC] 81 mg PO DAILY 03/01/15 HYDROcodone 10MG/APAP 325MG [[place] 10/325] 1 tab PO QID PRN 03/01/15 Cyanocobalamin Inj [Vitamin B-12 Inj] 1,000 mcg IM MONTHLY 05/05/16 Multiple Vitamin [Multi Vitamin] 1 tab PO DAILY 05/05/16 Pantoprazole Tablet [Protonix] 40 mg PO DAILY 05/05/16 ALPRAZolam [Xanax] 0.5 mg PO Q6H PRN 11/10/17 Cephalexin Monohydrate [Keflex] 500 mg PO DAILY 11/10/17 Memantine HCl [Namenda] 5 mg PO DAILY 11/10/17 Naloxegol Oxalate [Movantik] 25 mg PO ACBK 11/10/17 Ondansetron Tab [Zofran Tab] 4 mg PO Q4H PRN 11/10/17 Polyethylene Glycol 3350 [Miralax] 17 gm PO DAILY 11/10/17 Potassium Chloride [Potassium Chloride ER] 8 meq PO DAILY 11/10/17 Multivit-Min W/Fe-FA [ and Iron] 1 tab PO DAILY 11/10/17 Promethazine Tab [Phenergan Tablet] 25 mg PO Q6H PRN 11/10/17 Quetiapine Fumarate [Seroquel] 25 mg PO BEDTIME 11/10/17 Zolpidem Tartrate 1 - 2 mg PO BEDTIME PRN 11/10/17 Review of Systems - Review of Systems Constitutional: States: no symptoms reported EENTM: States: no symptoms reported Respiratory: States: no symptoms reported Cardiology: States: no symptoms reported Gastrointestinal/Abdominal: States: other - history of + FOBT see hpi Hematologic/Lymphatic: States: anemia All other Systems: Reviewed and Negative, No Change from Baseline Past Medical History (General) - Patient Medical History Hx Seizures: No Hx Stroke: No Hx Dementia: Yes Hx Asthma: No Hx of COPD: No Hx Cardiac Disorders: Yes - [place] with CABG Hx Congestive Heart Failure: No Hx Pacemaker: No Hx Hypertension: Yes Hx Thyroid Disease: No Hx Diabetes: No Hx Gastroesophageal Reflux: Yes Hx Renal Disease: No Hx Cancer: No Hx of HIV: No Hx Hepatitis C: No Hx MRSA: No Hx Other PMH: Yes - dementia Surgical History: appendectomy, coronary bypass surgery, other - right knee/ ankle - Vaccination History Hx Tetanus, Diphtheria Vaccination: Yes Hx Influenza Vaccination: Yes Hx Pneumococcal Vaccination: Yes - Social History Hx Tobacco Use: No Hx Chewing Tobacco Use: No Hx Alcohol Use: No Hx Substance Use: No Hx Substance Use Treatment: No Hx Depression: No Hx Physical Abuse: No Hx Emotional Abuse: No Hx Suspected Abuse: No - Activities of Daily Living Home Health Agency (if applicable): [facility] Grooming Ability: Moderate Assistance Eating (Feeding) Ability: Moderate Assistance Toileting Ability: Moderate Assistance - Female History Patient : No Family Medical History - Family History Mother Family History: Unknown Name: Jazz Puri Age (years): 87 Living Status: Age at (years of age): 87 Cause of : unknown Hx Family Asthma: No Hx Family Congestive Heart Failure: Yes - Parents Hx Family Hypertension: Yes - Parents Hx Family Stroke: No Hx Cardiac Disease: Yes - Parents Hx Family Diabetes: No Hx Family Cancer: No Physical Exam - Physical Exam General Appearance: Alert, Comfortable, No apparent distress Eye Exam: bilateral normal Ears, Nose, Throat: normal ENT inspection, hearing decreased Neck: non-tender, supple Respiratory: chest non-tender, no respiratory distress, decreased breath sounds - bases Cardiovascular/Chest: normal peripheral pulses, regular rate, rhythm, no gallop , no JVD, systolic murmur - g 4/6 2nd ICS left Peripheral Pulses: radial,right: 2+, radial,left: 2+ Gastrointestinal/Abdominal: normal bowel sounds, non tender, soft, no pulsatile mass Back Exam: no CVA tenderness, no vertebral tenderness Extremity: non-tender, no calf tenderness Neurologic: alert Skin Exam: normal color, warm/dry Progress - Progress Progress: 11/10/17 11:08 Vital Signs - 8 hr 11/10/17 10:52 Temperature 99.1 F Pulse Rate [ 85 Left Brachial] Respiratory 20 Rate Blood Pressure 132/100 [Left Arm] O2 Sat by Pulse 95 Oximetry - Results/Orders Results/Orders: Laboratory Results - last 24 hr 11/10/17 11/10/17 11/10/17 11:20 11:20 12:16 WBC 7.2 RBC 4.43 Hgb 12.9 Hct 38.6 MCV 87.1 MCH 29.1 MCHC 33.4 RDW 20.8 H Plt Count 316 MPV 9.6 Absolute Neuts (auto) 5.60 Absolute Lymphs (auto) 0.90 L Absolute Monos (auto) 0.50 Absolute Eos (auto) 0.10 Absolute Basos (auto) 0.10 Neutrophils % 77.6 Lymphocytes % 12.6 L Monocytes % 6.8 Eosinophils % 1.7 Basophils % 1.3 PT 11.5 INR 0.990 PTT (SP) 36.0 Sodium 136 Potassium 3.8 Chloride 102 Carbon Dioxide 25 Anion Gap 12.8 BUN 10 Creatinine 0.71 BUN/Creatinine Ratio 14.1 Random Glucose 113 H Serum Osmolality 271.8 L Lactic Acid 1.0 Calcium 9.1 Magnesium 1.9 Total Bilirubin 0.8 Direct Bilirubin 0.1 Indirect Bilirubin 0.7 AST 20 ALT 13 Alkaline Phosphatase 54 Creatine Kinase 30 CK-MB (CK-2) 2.3 CK-MB (CK-2) % Not Reportable Troponin I < 0.02 Serum Total Protein 7.0 Albumin 4.0 Urine Color Yellow Urine Appearance Cloudy Urine pH 7.0 Ur Specific [place] 1.015 Urine Protein Negative Urine Glucose (UA) Negative Urine Ketones Negative Urine Blood Large H Urine Nitrite Negative Urine Bilirubin Negative Urine Urobilinogen 0.2 Ur Leukocyte Esterase Trace H Urine RBC 3-5 H Urine WBC 1-3 Ur Epithelial Cells 3-5 Amorphous Sediment 3+ Urine Bacteria 1+ - EKG/XRAY/CT XRAY: chest - cardiac shadow enlarged,no vascular congestion,emphysematous changes,no effusion/consolidation CT Ordered: Yes - no acute abnormalities noted Departure - Departure Clinical Impression: Appetite loss Hypertension Qualifiers: Hypertension type: unspecified Qualified Code(s): I10 - Essential (primary) hypertension Hematuria Qualifiers: Hematuria type: unspecified type Qualified Code(s): R31.9 - Hematuria, unspecified Time of Disposition: 13:53 Disposition: Discharge to Home or Self Care Condition: Fair Departure Forms: ED Discharge - Pt. Copy, Patient Portal Self Enrollment Instructions: DI for High Blood Pressure Referrals: Pankaj Goetz MD [Primary Care Provider] - 1-2 Weeks Home Medications: Ambulatory Orders Aspirin [Aspirin EC] 81 mg PO DAILY 03/01/15 HYDROcodone 10MG/APAP 325MG [[place] 10/325] 1 tab PO QID PRN 03/01/15 Cyanocobalamin Inj [Vitamin B-12 Inj] 1,000 mcg IM MONTHLY 05/05/16 Multiple Vitamin [Multi Vitamin] 1 tab PO DAILY 05/05/16 Pantoprazole Tablet [Protonix] 40 mg PO DAILY 05/05/16 ALPRAZolam [Xanax] 0.5 mg PO Q6H PRN 11/10/17 Cephalexin Monohydrate [Keflex] 500 mg PO DAILY 11/10/17 Memantine HCl [Namenda] 5 mg PO DAILY 11/10/17 Naloxegol Oxalate [Movantik] 25 mg PO ACBK 11/10/17 Ondansetron Tab [Zofran Tab] 4 mg PO Q4H PRN 11/10/17 Polyethylene Glycol 3350 [Miralax] 17 gm PO DAILY 11/10/17 Potassium Chloride [Potassium Chloride ER] 8 meq PO DAILY 11/10/17 Multivit-Min W/Fe-FA [ and Iron] 1 tab PO DAILY 11/10/17 Promethazine Tab [Phenergan Tablet] 25 mg PO Q6H PRN 11/10/17 Quetiapine Fumarate [Seroquel] 25 mg PO BEDTIME 11/10/17 Zolpidem Tartrate 1 - 2 mg PO BEDTIME PRN 11/10/17 Additional Instructions: Follow up with primary Md Dr. Goetz;Continue with all home medications
[2017-11-10] MEDS ORDERED: MULTIPLE VITAMIN INJ 10 ML, THIAMINE HCL INJ 100 MG in SODIUM CHLORIDE 0.9% 1000ML 1,00... IVS ONE (11:09)
[2017-11-10] MEDS ORDERED: THIAMINE HCL INJ 100 MG/ML VIAL ONE (11:16)
[2017-11-10] MEDS ORDERED: SODIUM CHLORIDE 0.9% 1000ML 1,000 ML ONE (11:16)
[2017-11-10] MEDS ORDERED: MULTIPLE VITAMIN 10 ML VIAL ONE (11:17)
--- NOTE | 2017-11-10 11:33 | RAD ---
EXAM DESCRIPTION: Chest,1 View CLINICAL HISTORY: weak COMPARISON: May 05, 2016 IMPRESSION: Single AP portable upright view of the chest shows enlargement of the cardiac silhouette without pulmonary vascular congestion. Sternotomy wires are seen in place. Lungs are hyperinflated with emphysematous changes seen. No acute appearing infiltrate or consolidation is identified. . No obvious pleural effusion or pneumothorax is seen. Electronically signed by: Parish Larry MD 11/10/2017 11:32 AM CDT
[2017-11-10] MEDS ORDERED: ALPRAZolam 0.25 MG TAB PO ONE (12:29)
[2017-11-10] MEDS ORDERED: METOPROLOL TARTRATE 25 MG TAB PO ONE (12:29)
[2017-11-10 13:01] VITALS: O2SAT 94
--- NOTE | 2017-11-10 13:39 | CT ---
EXAM DESCRIPTION: CT abdomen and pelvis without contrast CLINICAL HISTORY: Haematuria COMPARISON: 09/10/2016 TECHNIQUE: Spiral CT with multiplanar reformatted images. This exam was performed according to our departmental dose-optimization program, which includes automated exposure control, adjustment of the mA and/or kV according to patient size and/or use of iterative reconstruction technique. FINDINGS: No renal, ureteral, or bladder calculus or mass lesion Visualized lung bases are clear. Large sliding-type hiatal hernia similar to previous study. Cardiomegaly with coronary artery calcifications. Atherosclerotic aorta without aneurysm No mass lesion in the spleen, pancreas, liver or adrenal glands No mass lesion or diagnostic inflammatory process seen in the stomach, small or large intestine. Innumerable diverticula of the lower descending and sigmoid colon. No diverticulitis. Previous hysterectomy. No pelvic soft tissue mass lesion, adenopathy or free fluid Degenerative changes throughout the spine. Osteopenia. No diagnostic acute bony abnormality IMPRESSION: No renal stone disease. No mass lesion along the genitourinary tract. Etiology of hematuria not clear from this exam Diverticulosis without diverticulitis Electronically signed by: Pankaj Nobles MD 11/10/2017 1:38 PM CDT
[2017-11-10 14:17] VITALS: BP 157/64
== END 2017-11-10 14:17 | disposition home or self-care (01) ==
LOC: ER 10:46
DX: I10 Essential (primary) hypertension (principal); R31.9 Hematuria, unspecified; R11.0 Nausea; D50.0 Iron deficiency anemia secondary to blood loss (chronic); I25.2 Old myocardial infarction; K21.9 Gastro-esophageal reflux disease without esophagitis; F03.90 Unspecified dementia, unspecified severity, without behavioral disturbance, psychotic disturbance, mood disturbance, and anxiety; R63.0 Anorexia; Z95.1 Presence of aortocoronary bypass graft; Z79.82 Long term (current) use of aspirin
CPT/HCPCS: 36415; 71045; 74176; 80048; 80076; 81001; 82550; 82553; 83605; 84484; 85025; 85610; 85730; J3411; J7030

== ENCOUNTER → 2017-11-16 | Outpatient (CLI) | payer MEDICARE, BC | LOC: YCHH 09:12 | PROVIDERS: ATTEND Family Medicine | DX: D64.9 Anemia, unspecified (principal); R79.89 Other specified abnormal findings of blood chemistry ==

== ENCOUNTER → 2018-01-10 | Outpatient (CLI) | payer MEDICARE, BC | LOC: LAB.O 11:48 | PROVIDERS: ATTEND Family Medicine | DX: N39.0 Urinary tract infection, site not specified (principal) ==

== ENCOUNTER → 2018-02-03 | Outpatient (CLI) | payer MEDICARE, BC | LOC: YCHH 09:44 | PROVIDERS: ATTEND Family Medicine | DX: D64.9 Anemia, unspecified (principal); I25.10 Atherosclerotic heart disease of native coronary artery without angina pectoris; E03.9 Hypothyroidism, unspecified ==

== ENCOUNTER → 2018-03-31 | Outpatient (CLI) | payer MEDICARE, BC | LOC: GMAM 17:41 | PROVIDERS: ATTEND Family Medicine | DX: R23.3 Spontaneous ecchymoses (principal) ==

== ENCOUNTER → 2018-05-02 | Outpatient (CLI) | payer MEDICARE, BC | LOC: YCHH 09:49 | PROVIDERS: ATTEND Family Medicine | DX: N39.0 Urinary tract infection, site not specified (principal) ==

== ENCOUNTER → 2018-05-17 | Outpatient (CLI) | payer MEDICARE, BC | LOC: YCHH 11:55 | PROVIDERS: ATTEND Family Medicine | DX: N39.0 Urinary tract infection, site not specified (principal) ==

== ENCOUNTER 2018-05-19 07:46 | Inpatient (IN) | payer MEDICARE, BC ==
--- NOTE | 2018-05-19 07:53 | ED.PDOC ---
History of Present Illness - General Chief Complaint: Fever Stated Complaint: Fever Time Seen by Provider: 05/19/18 07:49 Exam Limitations: no limitations - History of Present Illness Initial Comments: Duong Suresh 87 y/o female with history of UTI one week ago and had taken 10 days of oral antibiotics but had to changed it since C & S showing antibiotic not sensitive to organism.Brought by family since she has also fever and a little bit confused today asking names of several people but knows where she at present. Timing/Duration: yesterday Fever Severity/Quality: greater than 100.5 F Fever Therapy DESKTOP SUPPORT ENGINEER: Tylenol Associated Symptoms: denies symptoms, other - see hpi Review of Systems - Review of Systems Constitutional: States: see HPI, fever EENTM: States: no symptoms reported Respiratory: States: no symptoms reported Cardiology: States: no symptoms reported Gastrointestinal/Abdominal: States: no symptoms reported Genitourinary: States: see HPI Musculoskeletal: States: no symptoms reported Skin: States: no symptoms reported Neurological: States: no symptoms reported Past Medical History (General) - Patient Medical History Hx Seizures: No Hx Stroke: No Hx Dementia: Yes Hx Asthma: No Hx of COPD: No Hx Cardiac Disorders: Yes - [place] with CABG Hx Congestive Heart Failure: No Hx Pacemaker: No Hx Hypertension: Yes Hx Thyroid Disease: No Hx Diabetes: No Hx Gastroesophageal Reflux: Yes Hx Renal Disease: No Hx Cancer: No Hx of HIV: No Hx Hepatitis C: No Hx MRSA: No Surgical History: appendectomy, coronary bypass surgery, other - back,right knee /ankle - Vaccination History Hx Tetanus, Diphtheria Vaccination: Yes Hx Influenza Vaccination: Yes Hx Pneumococcal Vaccination: Yes - Social History Hx Tobacco Use: No Hx Chewing Tobacco Use: No Hx Alcohol Use: No Hx Substance Use: No Hx Substance Use Treatment: No Hx Depression: No Hx Physical Abuse: No Hx Emotional Abuse: No Hx Suspected Abuse: No - Female History Patient : No Family Medical History - Family History Mother Family History: Unknown Name: Jazz Puri Age (years): 87 Living Status: Age at (years of age): 87 Cause of : unknown Hx Family Asthma: No Hx Family Congestive Heart Failure: Yes - Parents Hx Family Hypertension: Yes - Parents Hx Family Stroke: No Hx Cardiac Disease: Yes - Parents Hx Family Diabetes: No Hx Family Cancer: No Physical Exam - Physical Exam General Appearance: Alert, Comfortable, No apparent distress Eye Exam: bilateral normal ENT Exam: normal ENT inspection, hearing grossly normal, pharynx normal Neck: non-tender, full range of motion, supple, normal inspection, trachea midline Respiratory: chest non-tender, lungs clear, normal breath sounds, no respiratory distress Cardiovascular/Chest: normal peripheral pulses, regular rate, rhythm, systolic murmur - g 3/5 Gastrointestinal/Abdominal: non tender, soft, no organomegaly Extremity: no pedal edema, no calf tenderness Neurologic: alert, oriented x 3 Skin Exam: normal color, warm/dry Lymphatic: no adenopathy Progress - Progress Progress: 05/19/18 08:23 Vital Signs - 24 hr 05/19/18 07:48 Temperature 100.9 F H Pulse Rate [ 92 H Left Radial] Respiratory 16 Rate Blood Pressure 108/82 [Left Arm] O2 Sat by Pulse 93 L Oximetry - Results/Orders Results/Orders: 05/19/18 07:54 IV Care:Saline Lock per Protoc QSHIFT URINALYSIS Stat 05/19/18 08:25 BLOOD CULTURE Stat 05/19/18 09:33 Meropenem [Merrem] 500 mg Sodium Chl 0.9% 50Ml Min-Bag+ [NS 50ml MINI-BAG+] 50 ml IVPB ONCE Laboratory Results - last 24 hr 05/19/18 05/19/18 05/19/18 07:34 07:34 08:00 WBC 18.1 H RBC 4.13 L Hgb 10.6 L Hct 33.7 L MCV 81.6 MCH 25.6 L MCHC 31.5 L RDW 16.0 H Plt Count 301 MPV 10.2 Absolute Neuts (auto) 15.70 H Absolute Lymphs (auto) 1.00 Absolute Monos (auto) 1.00 H Absolute Eos (auto) 0.40 Absolute Basos (auto) 0.10 Neutrophils % 86.6 H Lymphocytes % 5.3 L Monocytes % 5.3 Eosinophils % 2.5 Basophils % 0.3 PT 10.0 INR 1.00 PTT (SP) 32.1 H Sodium Potassium Chloride Carbon Dioxide Anion Gap BUN Creatinine BUN/Creatinine Ratio Random Glucose Serum Osmolality Lactic Acid Calcium Magnesium 1.9 Total Bilirubin AST ALT Alkaline Phosphatase Creatine Kinase 43 CK-MB (CK-2) 1.6 CK-MB (CK-2) % Not Reportable Troponin I < 0.02 B-Natriuretic Peptide 275.0 H* Serum Total Protein Albumin Globulin Albumin/Globulin Ratio 05/19/18 05/19/18 08:00 08:00 WBC RBC Hgb Hct MCV MCH MCHC RDW Plt Count MPV Absolute Neuts (auto) Absolute Lymphs (auto) Absolute Monos (auto) Absolute Eos (auto) Absolute Basos (auto) Neutrophils % Lymphocytes % Monocytes % Eosinophils % Basophils % PT INR PTT (SP) Sodium 137 Potassium 3.6 Chloride 102 Carbon Dioxide 25 Anion Gap 13.6 BUN 13 Creatinine 0.68 BUN/Creatinine Ratio 19.1 Random Glucose 109 H Serum Osmolality 274.5 L Lactic Acid 1.3 Calcium 9.1 Magnesium Total Bilirubin 0.6 AST 24 ALT 13 Alkaline Phosphatase 51 Creatine Kinase CK-MB (CK-2) CK-MB (CK-2) % Troponin I B-Natriuretic Peptide Serum Total Protein 7.1 Albumin 4.0 Globulin 3.1 Albumin/Globulin Ratio 1.3 Discuss test result with family and recommendation for hospital OBS agreed with plan. - EKG/XRAY/CT XRAY: chest - cardiomegaly ;increase vascular comgestion Departure - Departure Clinical Impression: UTI (urinary tract infection) Qualifiers: Urinary tract infection type: site unspecified Hematuria presence: without hematuria Qualified Code(s): N39.0 - Urinary tract infection, site not specified Fever Qualifiers: Fever type: unspecified Qualified Code(s): R50.9 - Fever, unspecified Time of Disposition: 09:46 Disposition: Admit Patient Condition: Fair Departure Forms: Patient Portal Self Enrollment Referrals: Pankaj Goetz MD [Primary Care Provider] - 1-2 Weeks Home Medications: Ambulatory Orders Aspirin [Aspirin EC] 81 mg PO DAILY 03/01/15 HYDROcodone 10MG/APAP 325MG [[place] 10/325] 1 tab PO QID PRN 03/01/15 Cyanocobalamin Inj [Vitamin B-12 Inj] 1,000 mcg IM MONTHLY 05/05/16 Multiple Vitamin [Multi Vitamin] 1 tab PO DAILY 05/05/16 Pantoprazole Tablet [Protonix] 40 mg PO DAILY 05/05/16 Cephalexin Monohydrate [Keflex] 500 mg PO DAILY 11/10/17 Memantine HCl [Namenda] 5 mg PO DAILY 11/10/17 Naloxegol Oxalate [Movantik] 25 mg PO ACBK 11/10/17 Polyethylene Glycol 3350 [Miralax] 17 gm PO DAILY 11/10/17 Potassium Chloride [Potassium Chloride ER] 8 meq PO DAILY 11/10/17 Multivit-Min W/Fe-FA [ and Iron] 1 tab PO DAILY 11/10/17 Furosemide [Furosemide] 20 mg PO DAILY 05/19/18 Lisinopril 10 mg PO DAILY PRN 05/19/18 Pregabalin [Lyrica] 100 mg PO TID 05/19/18 Decision To Admit - Decistion To Admit Decision to Admit Reason: Admit from ER Decision to Admit Date: 05/19/18 - Markus Ahn -ANP/Hospitalist Decision to Admit Time: 09:46
[2018-05-19] MEDS ORDERED: SODIUM CHLORIDE 0.9% 1000ML 500 ML IVS ONE (07:54)
--- NOTE | 2018-05-19 08:28 | RAD ---
EXAM DESCRIPTION: Chest,1 View CLINICAL HISTORY: 87 years Female, fever COMPARISON: Previous study November 10, 2017 TECHNIQUE: AP portable chest. FINDINGS: Heart size is large with centrally increased pulmonary vascularity. Patchy infiltrate is seen in the left lower lobe above the diaphragm. Lesser patchy infiltrates or edema in the midlungs bilaterally. No pneumothorax or large pleural effusion. Compared to previous study, vascular congestion is increased and the findings may indicate volume overload or congestive failure. Degenerative changes in the left shoulder. IMPRESSION: Large heart with increased vascularity consistent with volume overload or congestive failure. Patchy infiltrate in the left lower lobe worrisome for pneumonia. Electronically signed by: Tolu Vela MD 05/19/2018 8:26 AM [employer]
[2018-05-19] MEDS ORDERED: HYDROcodone 10MG/APAP 325MG 1 EA TAB PO ONE (08:55)
[2018-05-19] MEDS ORDERED: HYDROcodone 10MG/APAP 325MG 1 EA TAB ONE (08:57)
[2018-05-19] MEDS ORDERED: MEROPENEM 500 MG in SODIUM CHL 0.9% 50ML MIN-BAG+ 50 ML IVPB ONE (09:33)
[2018-05-19] MEDS ORDERED: MEROPENEM 500 MG VIAL IVPB ONE (09:35)
[2018-05-19] MEDS ORDERED: SODIUM CHL 0.9% 50ML MIN-BAG+ 50 ML IVPB ONE ×2 (09:35→20:08)
--- NOTE | 2018-05-19 10:04 | HP ---
SUPERVISING PHYSICIAN: Pankaj Goetz M.D. CHIEF COMPLAINT: Fever. HISTORY OF PRESENT ILLNESS: Ms. Suresh is an 87 year-old female with a history of recently being treated for a urinary tract infection within the last week and having taken 10 days of oral antibiotics with previous culture results showing antibiotic Macrodantin not sensitive to organism. She was brought into the [facility] by her family. As noted, she had 101 fever at home subjectively and was showing some confusion today. On initial presentation to the [facility] laboratory results showed she had a leukocytosis of 18,100 with a left shift. Chemistries showed to be within normal limits, lactic acid 1.3, BNP slightly elevated at 275, troponin was less than 0.02. Urinalysis again showed large blood, small amount of leukocyte esterase. Microscopic revealing 1 to 3 RBCs, 5 to 10 WBCs, 3 to 5 renal epithelials, 1+ amorphous and 3+ bacteria with 1+ or trace of mucous. Given that the patient had a fever subjectively prior to admission and a leukocytosis with a fever on presentation of 100.9, a chest x-ray was completed with a single view chest and per radiology interpretation was noted an large heart with increased vascularity consistent with volume overload or congestive failure with a patchy infiltrate in the left lower lobe worsened from pneumonia. The patient now is going to be admitted to the hospital for ongoing treatment of left lower lobe pneumonia, community acquired, and urinary tract infection with possible sepsis having failed to respond to outpatient treatment measures with a history of multiple urinary tract infections and highly resistant organisms. She was admitted in stable condition. PAST MEDICAL HISTORY: 1. Chronic anemia due to iron deficiency. 2. Recurring urinary tract infections having recently been on Macrobid and with multiple urinary tract infections showing highly resistant organisms. 3. Coronary artery disease with a history of myocardial infarctions.. Last echocardiogram showing to be in 2013 with ejection fraction of 60%. 4. Hyperlipidemia. 5. Hypertension. 6. Aortic valve stenosis with significant cardiac murmur. 7. Diverticulosis. 8. Osteoarthritis. 9. Cervical spine stenosis. 10. Mild dementia. 11. History of previous infectious colitis. PAST SURGICAL HISTORY: 1. Coronary artery bypass grafting of three vessels in 2004 and then again in 2011. 2. Ankle replacement in September 2004. 3. Hysterectomy with bilateral salpingo-oophorectomy in 1971. 4. Multiple epidural injections of the spine for chronic pain management. 5. Right knee arthroplasty in 2012. CURRENT MEDICATIONS: 1. Probiotic 1 tablet daily, 2. iron 1 tablet daily. 3. Lyrica 100 mg t.i.d. 4. Potassium chloride 8 mEq daily. 5. MiraLAX 17 grams daily. 6. Protonix 40 mg daily. 7. Movantik 25 mg daily. 8. Namenda 5 mg daily. 9. Lisinopril 10 mg as needed. 10. [place] 10/325 one tablet q.i.d. as needed. 11. Lasix 20 mg daily. 12. Vitamin B12 injection 1,000 mcg monthly 13. Calcium 600 mg daily. 14. Aspirin 81 mg daily. ALLERGIES: CIPROFLOXACIN. FAMILY HISTORY: Positive for congestive heart failure, coronary artery disease and cancers. SOCIAL HISTORY: The patient lives in [place] with her . She is retired. She has never smoked. Never used illicit drugs or alcohol. REVIEW OF SYSTEMS: Positive for fever subjective at home of 101 with general malaise. HEENT: No reported nasal congestion, ear aches, sore throat, vision changes. RESPIRATORY: Denies any shortness of breath, wheezing or coughing. CARDIOVASCULAR: Denies any chest pain, palpitations or syncopal episodes. GASTROINTESTINAL: Denies any nausea, vomiting, diarrhea, abdominal pains. GENITOURINARY: As noted in history of present illness, chronic urinary tract infections, but actually denies any dysuria, hematuria or polyuria. NEUROLOGIC: Denies any ataxia, seizures, syncopal episodes or other neurological deficits. PHYSICAL EXAMINATION: VITAL SIGNS: Admission temperature was 100.9, pulse 92, blood pressure 108/82, respirations 16, satting 93% on room air. Admission weight was 72.5 kg. GENERAL: On admission to the Medical/Surgical floor, the patient appeared to be in no acute distress. She was alert, well nourished. HEENT: Tympanic membranes are clear bilaterally. Oropharynx was pink and moist without any lesions. NECK: Supple, non-tender with full range of motion. No jugular venous distention. CHEST: Lung sounds were fairly clear throughout with just diminished sounds towards the bases. CARDIOVASCULAR: Regular rate and rhythm with a notable systolic murmur of 3/5.a GASTROINTESTINAL: Abdomen is non-tender. Positive bowel sounds. No rebound tenderness. EXTREMITIES: Without any notable edema, clubbing or cyanosis. NEUROLOGIC: She is alert and oriented times three. Facial features were symmetrical. Extraocular movements are within normal limits. Cranial nerves II -XII are grossly intact. LABORATORY: White count on admission showed a leukocytosis of 18,100, hemoglobin 10.6, hematocrit 33.7 with differential showing a left shift. Coagulation studies showed a PT of 10, PTT of 32.1. Chemistries showed normal electrolytes with BUN 13, creatinine 0.68, lactic acid 1.3. Liver functions showing to be within normal limits. BNP was elevated advised to 275, troponin less than 0.02. Urinalysis showed large amount of blood, small amount of leukocyte esterase. Microscopic revealed 1 to 3 RBCs, 5 to 10 WBCs, 3 to 5 epithelials, e to 5 epithelial renal cells with 1+ amorphous, 3+ bacteria and trace of mucous. MICROBIOLOGY: Urine cultures from the clinic. Blood culture is pending. RADIOLOGY: Chest x-ray per radiology interpretation shows large heart with increased vascularity consistent with volume overload or congestive failure with patchy infiltrate in the left lower lobe worrisome for pneumonia. ASSESSMENT: 1. Left lower lobe pneumonia likely community acquired as noted on radiographic studies with the patient having leukocytosis and fever on admission. 2. Chronic congestive heart failure with BNP elevate on admission and radiographic studies indicating some increasing vasculature with the patient's last echocardiogram per medical record review showing an ejection fraction of 60% in July 2013 with the patient having atrial valve stenosis and significant cardiac murmur. 3. Urinary tract infection with concerns for early sepsis with the patient showing leukocytosis and a fever on admission with the patient recently being on antibiotics for a urinary tract infection having failed to respond to outpatient treatment measures with the patient having a longstanding history of recurrent infections and highly resistant microorganisms requiring initiation of parenteral antibiotics awaiting final cultures. 4. History of iron deficiency anemia, chronic. 5. History of chronic hypertension. 6. History of diverticulosis with no current evidence clinically of any diverticulitis. 7. History of osteoarthritis. 8. History of mild dementia. PLAN: The patient is going to be admitted to the Medical/Surgical floor for ongoing treatment of both left lower lobe pneumonia and urinary tract infection having failed to respond to outpatient treatment measures. Given that she has both pneumonia and urinary tract infection and having multiple organisms that are resistant, will start on Meropenem and await culture results to further target antibiotic therapy. She will be on aggressive pulmonary hygiene with Xopenex treatments and p.r.n. Albuterol. Will await sputum culture results as well as urinary culture results. She will be on DVT prophylaxis as per protocol. Will anticipate length of stay to be at least 2 to 3 days. Will resume home medications as appropriate once those have been updated and verified. Until the patient can transition to outpatient management, will continue to monitor and treat as needed. #[id number] [facility]
[2018-05-19] MEDS ORDERED: SODIUM CHLORIDE 0.9% (FLUSH) 10 ML SYG IV PRN (11:55)
[2018-05-19] MEDS ORDERED: ONDANSETRON INJ 4 MG/2 ML VIAL IV PRN (11:55)
[2018-05-19] MEDS ORDERED: ALBUTEROL SULFATE 2.5 MG/3 ML VIAL NEB PRN (11:55)
[2018-05-19] MEDS ORDERED: ACETAMINOPHEN 325 MG TAB PO PRN (11:55)
[2018-05-19] MEDS ORDERED: IV SET AND CAP CHANGE INJ INJ SCH (12:00)
[2018-05-19] MEDS ORDERED: IPRATROPIUM/ALBUTEROL 3 ML VIAL INH SCH (12:00)
[2018-05-19] MEDS: HYDROcodone 10MG/APAP 325MG 1 EA TAB PO PRN ×2 (16:08→20:52)
[2018-05-19] MEDS: LEVALBUTEROL NEBS 1.25 MG/3 ML VIAL NEB SCH (16:57)
[2018-05-19] MEDS ORDERED: MEROPENEM 1 GM VIAL IVPB ONE (20:09)
[2018-05-19] MEDS: MEROPENEM 1 GM in SODIUM CHL 0.9% 50ML MIN-BAG+ 50 ML IVPB SCH (20:44)
[2018-05-19] MEDS: PREGABALIN 100 MG CAP PO SCH (20:45)
[2018-05-19] MEDS ORDERED: PANTOPRAZOLE SODIUM IV 40 MG VIAL ONE (20:53)
[2018-05-19] MEDS: KCL 20MEQ/0.45% NS 1,000 ML IVS PRN (23:56)
[2018-05-20] MEDS: LEVALBUTEROL NEBS 1.25 MG/3 ML VIAL NEB SCH ×3 (00:28→16:27)
[2018-05-20] MEDS: PANTOPRAZOLE SODIUM IV 40 MG VIAL IV SCH (05:45)
[2018-05-20] MEDS: NALOXEGOL OXALATE 25 MG PO SCH (05:54)
--- NOTE | 2018-05-20 06:43 | RAD ---
EXAM DESCRIPTION: Chest,1 View CLINICAL HISTORY:87 years Female, Pneumonia Comparison: May 19, 2018 FINDINGS: No focal lung consolidation. No pleural effusion. No pneumothorax. Enlarged cardiac silhouette. Improved pulmonary vascularity No acute osseous abnormality. Soft tissues are unremarkable. IMPRESSION: Enlarged cardiac silhouette with improved pulmonary vascularity. No focal lung consolidation. Electronically signed by: Tho Horne MD 05/20/2018 6:42 AM WAIST [employer]TER
[2018-05-20] MEDS: HYDROcodone 10MG/APAP 325MG 1 EA TAB PO PRN ×2 (08:00→14:53)
[2018-05-20] MEDS ORDERED: SODIUM CHL 0.9% 50ML MIN-BAG+ 50 ML IVPB ONE ×2 (08:24→19:21)
[2018-05-20] MEDS ORDERED: MEROPENEM 1 GM VIAL IVPB ONE ×2 (08:25→19:22)
[2018-05-20] MEDS: POTASSIUM CHLORIDE 8 MEQ TAB PO SCH (08:28)
[2018-05-20] MEDS: ASPIRIN (ENTERIC COATED) 81 MG TAB PO SCH (08:28)
[2018-05-20] MEDS: PREGABALIN 100 MG CAP PO SCH ×3 (08:28→20:39)
[2018-05-20] MEDS: POLYETHYLENE GLYCOL 3350 17 GM PCKT PO SCH (08:28)
[2018-05-20] MEDS: MEMANTINE 10 MG TAB PO SCH (08:29)
[2018-05-20] MEDS: FUROSEMIDE 40 MG TAB PO SCH (08:29)
[2018-05-20] MEDS: MEROPENEM 1 GM in SODIUM CHL 0.9% 50ML MIN-BAG+ 50 ML IVPB SCH ×2 (08:34→20:39)
[2018-05-20] MEDS: CALCIUM CARBONATE (ANTACID) 500 MG CHEWABLE TAB PO SCH (08:40)
[2018-05-20] MEDS ORDERED: NON-FORMULARY MEDICATION 1 EA MIS (Calcium [Calcium] 600 MG) PO SCH (09:00)
[2018-05-20] MEDS: KCL 20MEQ/0.45% NS 1,000 ML IVS PRN (13:05)
--- NOTE | 2018-05-20 18:18 | PN ---
DATE: 05/20/18 SUPERVISING PHYSICIAN: Pankaj Goetz M.D. SUBJECTIVE: The patient notes that she is feeling about 40% better than she was yesterday. She has not had a fever through the night and she is without any nausea or vomiting. OBJECTIVE: T max 100.9, pulse 85, blood pressure 149/73, respirations 18, satting 94% on room air at rest. I's and O's are fairly well balanced but not completely managed with the patient having some voids that were missed. Weight is 77.1 kg. CHEST: Lung sounds are without any rhonchi, wheezing or rales but they are diminished towards the bases. HEART: Regular rate and rhythm without appreciable murmurs, gallops, or rubs. ABDOMEN: Soft with no notable tenderness , rebound tenderness or guarding. EXTREMITIES: Without any clubbing, cyanosis or edema. NEUROLOGIC: She is alert and oriented times three. LABORATORY: White count now is normalized to 6,200, hemoglobin 9.7, hematocrit 30.4, platelet count 255,000. Differential today shows a resolving left shift. Chemistries show normal electrolytes with potassium 3.6, calcium 8.4. MICROBIOLOGY: Urine culture from the clinic showed mixed amelie with possible contamination. Recommend re-collection. Collection on urine on admission is pending as well as the culture is pending. Currently blood cultures remain without any growth. RADIOLOGY: Chest x-ray per radiology interpretation shows enlarge cardiac silhouette with improved pulmonary vasculature and no lung focal consolidations compared to yesterday. ASSESSMENT: 1. Left lower lobe pneumonia likely community acquired as noted on radiographic studies with the patient having leukocytosis and fever on admission showing improvement with initiation of parenteral antibiotics to include Meropenem and aggressive pulmonary hygiene. 2. Chronic congestive heart failure with and elevated BNP on admission and radiographic studies indicating some increasing vasculature with the patient's last echocardiogram per record review showing an ejection fraction of 60% in July 2013 with an atrial valve stenosis and significant cardiac murmur continuing to show improvement with treatment. 3. Urinary tract infection with concerns for sepsis with the patient having significant leukocytosis and a fever on admission and having been recently on antibiotics for recent urinary tract infection having failed to respond to outpatient treatment measures with current culture results pending and a history of multiple resistant microorganisms requiring initiation of parenteral antibiotics until culture results are available to target antibiotics more closely. 4. History of iron deficiency anemia, chronic. 5. History of chronic hypertension showing to be stable. 6. History of diverticulosis with no current evidence clinically of any diverticulitis. 7. History of osteoarthritis. 8. History of mild dementia. PLAN: Will continue with treatment with Meropenem awaiting urine culture results. She continues on aggressive pulmonary hygiene. I have saline locked her as she is having adequate oral intake today. Will closely monitor her output and continue her on her home medications. She was unable to produce a sputum but has again culture on urine pending. Hopefully those results will be available in the near future so we can target antibiotic therapy to include appropriate oral regimen that the patient can be discharged home on. Until then will continue DVT prophylaxis and anticipate at least another 24 to 48 hour hospitalization. Until she can transition to outpatient management with oral medication will continue to treat as needed. #[id number] [facility]
[2018-05-20] MEDS ORDERED: MELATONIN 3 MG TAB PO SCH (21:00)
[2018-05-21] MEDS: LEVALBUTEROL NEBS 1.25 MG/3 ML VIAL NEB SCH ×2 (00:26→08:30)
[2018-05-21] MEDS: PANTOPRAZOLE SODIUM IV 40 MG VIAL IV SCH (06:20)
[2018-05-21] MEDS: NALOXEGOL OXALATE 25 MG PO SCH (06:20)
[2018-05-21] MEDS ORDERED: SODIUM CHL 0.9% 50ML MIN-BAG+ 50 ML IVPB ONE (06:57)
[2018-05-21] MEDS ORDERED: MEROPENEM 1 GM VIAL IVPB ONE (06:58)
[2018-05-21] MEDS: POTASSIUM CHLORIDE 8 MEQ TAB PO SCH (08:30)
[2018-05-21] MEDS: MEMANTINE 10 MG TAB PO SCH (08:30)
[2018-05-21] MEDS: MEROPENEM 1 GM in SODIUM CHL 0.9% 50ML MIN-BAG+ 50 ML IVPB SCH (08:30)
[2018-05-21] MEDS: POLYETHYLENE GLYCOL 3350 17 GM PCKT PO SCH (08:30)
[2018-05-21] MEDS: FUROSEMIDE 40 MG TAB PO SCH (08:30)
[2018-05-21] MEDS: CALCIUM CARBONATE (ANTACID) 500 MG CHEWABLE TAB PO SCH (08:30)
[2018-05-21] MEDS: ASPIRIN (ENTERIC COATED) 81 MG TAB PO SCH (08:31)
[2018-05-21] MEDS: PREGABALIN 100 MG CAP PO SCH (08:31)
[2018-05-21] MEDS ORDERED: SODIUM CHLORIDE 0.9% (FLUSH) 10 ML SYG IV SCH (09:00)
[2018-05-21 10:10] VITALS: BP 110/68; TEMP 98.1; O2SAT 96
[2018-05-21] MEDS: HYDROcodone 10MG/APAP 325MG 1 EA TAB PO PRN (10:29)
[2018-05-23] MEDS: KCL 20MEQ/0.45% NS 1,000 ML IVS PRN (12:17)
--- NOTE | 2018-05-28 11:21 | DS ---
SUPERVISING PHYSICIAN: Pankaj Goetz M.D. ADMISSION DIAGNOSIS: 1. Left lower lobe pneumonia likely community acquired as noted on radiographic studies with the patient having leukocytosis and fever on admission. 2. Chronic congestive heart failure with BNP elevate on admission and radiographic studies indicating some increasing vasculature with the patient's last echocardiogram per medical record review showing an ejection fraction of 60% in July 2013 with the patient having atrial valve stenosis and significant cardiac murmur. 3. Urinary tract infection with concerns for early sepsis with the patient showing leukocytosis and a fever on admission with the patient recently being on antibiotics for a urinary tract infection having failed to respond to outpatient treatment measures with the patient having a longstanding history of recurrent infections and highly resistant microorganisms requiring initiation of parenteral antibiotics awaiting final cultures. 4. History of iron deficiency anemia, chronic. 5. History of chronic hypertension. 6. History of diverticulosis with no current evidence clinically of any diverticulitis. 7. History of osteoarthritis. 8. History of mild dementia. DISCHARGE DIAGNOSIS: 1. Left lower lobe pneumonia, community acquired with the patient having leukocytosis and fever on admission, improving with initiation of parenteral antibiotics to include Meropenem and aggressive pulmonary hygiene. 2. Chronic congestive heart failure with an elevated BNP on admission and radiographic studies indicating increasing vasculature with the patient's last echocardiogram per record review showing an ejection fraction of 60% with a normal preserved systolic function with atrial valve stenosis and significant cardiac murmur but showing improvement prior to discharge with treatment. 3. Urinary tract infection with concerns for sepsis with the patient having severe leukocytosis and fever on admission and having recently been on antibiotics for multiple treatments in the past with multiple resistant organisms with final culture results showing probable contaminant. 4. History of iron deficiency anemia, chronic. 5. History of chronic hypertension showing to be stable. 6. History of diverticulosis without any evidence of acute diverticulitis. 7. History of osteoarthritis. 8. History of mild dementia. REASON FOR HOSPITALIZATION: Ms. Suresh is an 87 year-old female with a history of recently being treated for a urinary tract infection within the last week and having taken 10 days of oral antibiotics with previous culture results showing antibiotic Macrodantin not sensitive to organism. She was brought into the [facility] by her family. As noted, she had 101 fever at home subjectively and was showing some confusion today. On initial presentation to the [facility] laboratory results showed she had a leukocytosis of 18,100 with a left shift. Chemistries showed to be within normal limits, lactic acid 1.3, BNP slightly elevated at 275, troponin was less than 0.02. Urinalysis again showed large blood, small amount of leukocyte esterase. Microscopic revealing 1 to 3 RBCs, 5 to 10 WBCs, 3 to 5 renal epithelials, 1+ amorphous and 3+ bacteria with 1+ or trace of mucous. Given that the patient had a fever subjectively prior to admission and a leukocytosis with a fever on presentation of 100.9, a chest x-ray was completed with a single view chest and per radiology interpretation was noted an large heart with increased vascularity consistent with volume overload or congestive failure with a patchy infiltrate in the left lower lobe worsened from pneumonia. The patient now is going to be admitted to the hospital for ongoing treatment of left lower lobe pneumonia, community acquired, and urinary tract infection with possible sepsis having failed to respond to outpatient treatment measures with a history of multiple urinary tract infections and highly resistant organisms. She was admitted in stable condition. LABORATORY STUDIES: White count on admission was 18,100, prior to discharge it normalized to 6,200. Hemoglobin and hematocrit were showing to be stable at 9.7 and 30.4 respectively with a platelet count of 255,000. Differential did show a left shift that resolved prior to discharge. Coagulation studies showed normal PT and PTT. Chemistries showed normal electrolytes with potassium 3.6 at discharge. Lactic acid 1.3 on admission, magnesium 1.9. Liver functions showing to be within normal limits. BNP was slightly elevated at 275. Urinalysis on admission showed large amount of blood, small amount of leukocyte esterase. Microscopic showing 1 to 3 RBCs, 5 to 10 WBCs, 3 to 5 epithelials, 3 to 5 epithelial renal cells, 1+ amorphous, 3+ bacteria with 1+ mucous. MICROBIOLOGY: Urine final culture results showed probable contamination. Blood cultures showed no growth at 5 days. RADIOLOGY: She had a chest x-ray upon admission and prior to discharge per radiology interpretation of initial chest x-ray in the [facility] showed large heart , increased vasculature consistent with volume overload and congestive heart failure with patchy infiltrate in the left lower lobe worrisome for pneumonia. Final x-ray prior to discharge per radiology interpretation showed enlarged cardiac silhouette with improved pulmonary vasculature with no lung consolidations. HOSPITAL COURSE: Ms. Suresh was admitted on 05/19/18 for concerns for a resistant urinary tract infection along with pneumonia. She was initiated on treatment with Meropenem. She showed good clinical response and was able to transition to outpatient management. DISCHARGE PLAN: Ms. Suresh was discharged on 05/21/18 with instructions to followup with Dr. Goetz as scheduled in 1 to 2 weeks. She was to resume her home medications as instructed and to return to the hospital should she have any worsening of her symptoms. Diet at discharge was regular diet as tolerated. Activity is increase as tolerated. New medications at discharge included Levaquin 750 mg every day for 7 days. All other medications were resumed as previous to hospitalization. The patient was discharged in stable condition. DISPOSITION: The patient was discharged to family members. [facility][id number] [facility]
== END 2018-05-21 11:53 | disposition home or self-care (01) | DRG 871 ==
LOC: ER 07:46 → MS 10:03 → OBSVTOIN 10:03 → MS 05-20 13:26
PROVIDERS: ADMIT Nurse Practitioner Family; ATTEND Nurse Practitioner Family
DX: A41.9 Sepsis, unspecified organism (principal); J18.9 Pneumonia, unspecified organism; N39.0 Urinary tract infection, site not specified; I50.9 Heart failure, unspecified; D50.9 Iron deficiency anemia, unspecified; I11.0 Hypertensive heart disease with heart failure; K57.90 Diverticulosis of intestine, part unspecified, without perforation or abscess without bleeding; M19.90 Unspecified osteoarthritis, unspecified site; F03.90 Unspecified dementia, unspecified severity, without behavioral disturbance, psychotic disturbance, mood disturbance, and anxiety; Z66 Do not resuscitate; I25.10 Atherosclerotic heart disease of native coronary artery without angina pectoris; I25.2 Old myocardial infarction; E78.5 Hyperlipidemia, unspecified; I35.0 Nonrheumatic aortic (valve) stenosis; M48.02 Spinal stenosis, cervical region; Z95.1 Presence of aortocoronary bypass graft; Z79.82 Long term (current) use of aspirin; Z88.1 Allergy status to other antibiotic agents

== ENCOUNTER → 2018-09-27 | Outpatient (CLI) | payer MEDICARE, BC | LOC: YCHH 09:29 | PROVIDERS: ATTEND Family Medicine | DX: I25.10 Atherosclerotic heart disease of native coronary artery without angina pectoris (principal) ==

== ENCOUNTER → 2018-10-10 | Outpatient (CLI) | payer MEDICARE, BC | LOC: YCHH 11:29 | PROVIDERS: ATTEND Family Medicine | DX: N39.0 Urinary tract infection, site not specified (principal) ==

== ENCOUNTER 2019-02-02 13:45 | Emergency (ER) | payer MEDICARE, BC ==
--- NOTE | 2019-02-02 14:27 | ED.PDOC ---
History of Present Illness - General Chief Complaint: Syncope/Near Syncope Stated Complaint: abdominal pain, near syncope Time Seen by Provider: 02/02/19 14:10 Source: patient, family, other - caregiver Exam Limitations: no limitations - History of Present Illness Initial Comments: Patient presents after a witnessed syncopal event at home. Her caregiver reports that she was helping the patient on the toilet and the patient passed out for several seconds. She was trying to have a bowel movement. Her last one was yesterday and was normal with no visible blood. The patient has had mild nausea for the past two days and because of that, has been eating less. No vomiting. She currently has no pain complaints but had complained of abdominal pain earlier. She takes ASA but no other anticoagulants. She did not strike her head when she lost consciousness. No other complaints. Timing/Duration: 1/2 hour Severity: moderate Improving Factors: nothing Worsening Factors: nothing Associated Symptoms: other - as in HPI Allergies/Adverse Reactions: Allergies Ciprofloxacin [From Cipro] Allergy (Verified 05/19/18 07:57) Nausea Home Medications: Ambulatory Orders Aspirin [Aspirin EC] 81 mg PO DAILY 03/01/15 HYDROcodone 10MG/APAP 325MG [[place] 10/325] 1 tab PO QID PRN 03/01/15 Cyanocobalamin Inj [Vitamin B-12 Inj] 1,000 mcg IM MONTHLY 05/05/16 Pantoprazole Tablet [Protonix] 40 mg PO DAILY 05/05/16 Cephalexin Monohydrate [Keflex] 500 mg PO DAILY 11/10/17 Memantine HCl [Namenda] 5 mg PO DAILY 11/10/17 Naloxegol Oxalate [Movantik] 25 mg PO ACBK 11/10/17 Polyethylene Glycol 3350 [Miralax] 17 gm PO DAILY 11/10/17 Potassium Chloride [Potassium Chloride ER] 8 meq PO DAILY 11/10/17 Multivit-Min W/Fe-FA [ and Iron] 1 tab PO DAILY 11/10/17 Calcium 600 mg PO DAILY 05/19/18 Furosemide 20 mg PO DAILY 05/19/18 Lisinopril 10 mg PO DAILY PRN 05/19/18 Pregabalin [Lyrica] 100 mg PO TID 05/19/18 Probiotic Product [Probiotic] 1 tab PO DAILY 05/19/18 Levofloxacin [Levaquin] 750 mg PO DAILY #7 tablet 05/21/18 Review of Systems - Review of Systems Constitutional: States: no symptoms reported EENTM: States: no symptoms reported Respiratory: States: no symptoms reported Cardiology: States: no symptoms reported Gastrointestinal/Abdominal: States: see HPI Genitourinary: States: no symptoms reported Musculoskeletal: States: no symptoms reported Skin: States: no symptoms reported Neurological: States: see HPI Endocrine: States: no symptoms reported Hematologic/Lymphatic: States: no symptoms reported Past Medical History (General) - Patient Medical History Hx Seizures: No Hx Stroke: No Hx Dementia: Yes Hx Asthma: No Hx of COPD: No 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 Hx Congestive Heart Failure: No Hx Pacemaker: No Hx Hypertension: Yes Hx Thyroid Disease: No Hx Diabetes: No Hx Gastroesophageal Reflux: Yes Hx Renal Disease: No Hx Cancer: No Hx of HIV: No Hx Hepatitis C: No Hx MRSA: No - Vaccination History Hx Tetanus, Diphtheria Vaccination: Yes Hx Influenza Vaccination: Yes Hx Pneumococcal Vaccination: Yes - Social History Hx Tobacco Use: No Hx Chewing Tobacco Use: No Hx Alcohol Use: No Hx Substance Use: No Hx Substance Use Treatment: No Hx Depression: No Hx Physical Abuse: No Hx Emotional Abuse: No Hx Suspected Abuse: No - Female History Patient : No Family Medical History - Family History Mother Family History: Unknown Name: Jazz Puri Age (years): 87 Living Status: Age at (years of age): 87 Cause of : unknown Hx Family Asthma: No Hx Family Congestive Heart Failure: Yes - Parents Hx Family Hypertension: Yes - Parents Hx Family Stroke: No Hx Cardiac Disease: Yes - Parents Hx Family Diabetes: No Hx Family Cancer: No Physical Exam - Physical Exam General Appearance: Alert Eye Exam: bilateral normal Ears, Nose, Throat: normal ENT inspection Neck: non-tender, full range of motion, supple Respiratory: lungs clear, normal breath sounds Cardiovascular/Chest: normal peripheral pulses, regular rate, rhythm, no edema Gastrointestinal/Abdominal: non tender, soft, other - increased bowel sounds Extremity: normal range of motion, non-tender, normal inspection Neurologic: brand marketing intern II-XII nml as tested, no motor/sensory deficits, alert, normal mood/affect, oriented x 3 Skin Exam: normal color Lymphatic: no adenopathy Progress - Progress Progress: 02/02/19 17:33 Laboratory Tests 02/02/19 02/02/19 02/02/19 14:30 14:30 14:30 WBC 8.0 RBC 4.47 Hgb 13.7 Hct 41.8 MCV 93.4 MCH 30.7 MCHC 32.9 L RDW 14.4 Plt Count 368 MPV 10.8 H Absolute Neuts (auto) 4.30 Absolute Lymphs (auto) 2.60 Absolute Monos (auto) 0.60 Absolute Eos (auto) 0.40 Absolute Basos (auto) 0.10 Neutrophils % 53.5 Lymphocytes % 32.9 Monocytes % 7.9 Eosinophils % 4.5 Basophils % 1.2 Sodium 142 Potassium 4.5 Chloride 102 Carbon Dioxide 26 Anion Gap 18.5 H BUN 14 Creatinine 1.02 BUN/Creatinine Ratio 13.7 Random Glucose 165 H Serum Osmolality 287.3 Calcium 9.7 Total Bilirubin 0.7 AST 30 ALT 13 Alkaline Phosphatase 59 Serum Total Protein 6.9 Albumin 4.1 Globulin 2.8 Albumin/Globulin Ratio 1.5 TSH 6.32 H Thyroxine (T4) 6.78 Urine Color Urine Appearance Urine pH Ur Specific [place] Urine Protein Urine Glucose (UA) Urine Ketones Urine Blood Urine Nitrite Urine Bilirubin Urine Urobilinogen Ur Leukocyte Esterase Urine RBC Urine WBC Ur Epithelial Cells Urine Bacteria 02/02/19 14:45 WBC RBC Hgb Hct MCV MCH MCHC RDW Plt Count MPV Absolute Neuts (auto) Absolute Lymphs (auto) Absolute Monos (auto) Absolute Eos (auto) Absolute Basos (auto) Neutrophils % Lymphocytes % Monocytes % Eosinophils % Basophils % Sodium Potassium Chloride Carbon Dioxide Anion Gap BUN Creatinine BUN/Creatinine Ratio Random Glucose Serum Osmolality Calcium Total Bilirubin AST ALT Alkaline Phosphatase Serum Total Protein Albumin Globulin Albumin/Globulin Ratio TSH Thyroxine (T4) Urine Color Yellow Urine Appearance Cloudy Urine pH 6.5 Ur Specific [place] 1.015 Urine Protein Negative Urine Glucose (UA) Negative Urine Ketones Negative Urine Blood Small H Urine Nitrite Negative Urine Bilirubin Negative Urine Urobilinogen 0.2 Ur Leukocyte Esterase Small H Urine RBC 1-3 Urine WBC 5-10 H Ur Epithelial Cells 1-3 Urine Bacteria 1+ KUB showed constipation. Patient was asymptomatic in the E.R. CXR negative. EKG showed NSR with no ST changes. 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 Patient was advised to take a stool softener for up to four days to increase the volume of her bowel movements and decrease the strain. Care instructions given. E.R. warnings given. Questions were elicited and answered. Patient and her caregiver voiced understanding and agreement with the plan. 02/02/19 17:36 Departure - Departure Clinical Impression: Syncope Disposition: Discharge to Home or Self Care Condition: Good Departure Forms: ED Discharge - Pt. Copy, Patient Portal Self Enrollment Instructions: DI for Syncope in Adults (Fainting), Constipation, Adult (DC) Diet: other - as per your regular doctor Activity: other - as per your regular doctor Referrals: Pankaj Goetz MD [Primary Care Provider] - 1-2 Weeks Home Medications: Ambulatory Orders Aspirin [Aspirin EC] 81 mg PO DAILY 03/01/15 HYDROcodone 10MG/APAP 325MG [[place] 10/325] 1 tab PO QID PRN 03/01/15 Cyanocobalamin Inj [Vitamin B-12 Inj] 1,000 mcg IM MONTHLY 05/05/16 Pantoprazole Tablet [Protonix] 40 mg PO DAILY 05/05/16 Cephalexin Monohydrate [Keflex] 500 mg PO DAILY 11/10/17 Memantine HCl [Namenda] 5 mg PO DAILY 11/10/17 Naloxegol Oxalate [Movantik] 25 mg PO ACBK 11/10/17 Polyethylene Glycol 3350 [Miralax] 17 gm PO DAILY 11/10/17 Potassium Chloride [Potassium Chloride ER] 8 meq PO DAILY 11/10/17 Multivit-Min W/Fe-FA [ and Iron] 1 tab PO DAILY 11/10/17 Calcium 600 mg PO DAILY 05/19/18 Furosemide 20 mg PO DAILY 05/19/18 Lisinopril 10 mg PO DAILY PRN 05/19/18 Pregabalin [Lyrica] 100 mg PO TID 05/19/18 Probiotic Product [Probiotic] 1 tab PO DAILY 05/19/18 Levofloxacin [Levaquin] 750 mg PO DAILY #7 tablet 05/21/18 Additional Instructions: Take your stool softener or laxative for the next 3 or 4 days to increase the volume of your stools. You should have assistance during bowel movements as you may faint again. Return to the E.R. if fainting occurs again or for new symptoms.
--- NOTE | 2019-02-02 15:13 | RAD ---
EXAM DESCRIPTION: KUB CLINICAL HISTORY: 88 years Female, abdominal distension COMPARISON: CT abdomen and pelvis dated 11/10/2017. TECHNIQUE: 1 view of the abdomen was performed. FINDINGS: Multiple air distended bowel loops are identified with no evidence of bowel obstruction. Moderate amount of fecal material is identified. No abnormal calcifications are noted. IMPRESSION: Constipation. Electronically signed by: Isabela Mon MD 02/02/2019 3:11 PM CDT
--- NOTE | 2019-02-02 17:12 | RAD ---
EXAM DESCRIPTION: Chest,1 View CLINICAL HISTORY: syncope COMPARISON: 20 May 2018 TECHNIQUE: AP portable chest FINDINGS: The patient is poststernotomy. A poor respiratory effect is observed. The lungs are free of acute infiltrate. Cardiomegaly is evident. IMPRESSION: 1. The patient is poststernotomy and cardiomegaly is evident. 2. A poor inspiratory effect is observed. Electronically signed by: Nathan Perla MD 02/02/2019 5:10 PM CDT
[2019-02-02 18:28] VITALS: BP 185/105; TEMP 98.7; O2SAT 97
== END 2019-02-02 18:15 | disposition home or self-care (01) ==
LOC: ER 13:45
DX: R55 Syncope and collapse (principal); K59.00 Constipation, unspecified; K21.9 Gastro-esophageal reflux disease without esophagitis; I44.7 Left bundle-branch block, unspecified; I25.2 Old myocardial infarction; I10 Essential (primary) hypertension; F03.90 Unspecified dementia, unspecified severity, without behavioral disturbance, psychotic disturbance, mood disturbance, and anxiety; Z95.1 Presence of aortocoronary bypass graft; Z79.899 Other long term (current) drug therapy; Z79.82 Long term (current) use of aspirin; Z88.1 Allergy status to other antibiotic agents

== ENCOUNTER → 2019-05-12 | Outpatient (CLI) | payer MEDICARE, BC | LOC: YCHH 11:52 | PROVIDERS: ATTEND Family Medicine | DX: N18.9 Chronic kidney disease, unspecified (principal); D64.9 Anemia, unspecified; E53.8 Deficiency of other specified B group vitamins; E78.5 Hyperlipidemia, unspecified; E03.9 Hypothyroidism, unspecified ==

== ENCOUNTER → 2019-05-28 | Outpatient (CLI) | payer MEDICARE, BC | LOC: YCHH 11:43 | PROVIDERS: ATTEND Family Medicine | DX: R30.0 Dysuria (principal) ==

== ENCOUNTER 2019-05-31 16:17 | Observation (INO) | payer MEDICARE, BC ==
--- NOTE | 2019-05-31 16:47 | ED.PDOC ---
History of Present Illness - General Chief Complaint: Fever Stated Complaint: I don't feel good Time Seen by Provider: 05/31/19 16:40 Source: patient, RN notes reviewed, Vital Signs reviewed, other - creasing and cutting press feeder Exam Limitations: other - hx of dementia Additional Information: this is an 88-year-old female who presents to the ED with her creasing and cutting press feeder. They report that she has had recent UTI and finished her antibiotic yesterday. She was seen in the past week or 2 secondary to having symptoms of increased confusion. She does have a history of dementia but it is considered to be mild in nature. Her creasing and cutting press feeder states that she is still able to give them direction of the way she wants things. 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 She always has a creasing and cutting press feeder with her both during the day and at night. She is aware that she has a lot of family coming into town tomorrow and does not want to feel sick. She does admit that she feels very dry. Her caretakers noted that she had some poor skin turgor and thought that she would need some further attention. As stated previously her last day of antibiotics was yesterday. She has not had any GI complaints. No nausea vomiting or diarrhea. They stated that her MAXIMUM TEMPERATURE was 99.8 earlier in the day. She has had some achiness mostly in her lower extremities as compared to her back. She did have a flu shot earlier this year. No respiratory symptoms have been reported. Her appetite has been decreased as well. Review of Systems - Review of Systems Constitutional: States: fever, malaise. Denies: chills, diaphoresis, weakness EENTM: States: other - dry mouth Respiratory: States: no symptoms reported. Denies: cough, orthopnea, short of breath, wheezing Cardiology: States: no symptoms reported. Denies: chest pain, edema Gastrointestinal/Abdominal: States: other - poor appetite. Denies: abdominal pain, constipation, diarrhea, nausea, vomiting Genitourinary: States: dysuria, frequency, other - states that her dysuria has not completely resolved. 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 Hx Congestive Heart Failure: No Hx Pacemaker: No Hx Hypertension: Yes Hx Thyroid Disease: No Hx Diabetes: No Hx Gastroesophageal Reflux: Yes Hx Renal Disease: No Hx Cancer: No Hx of HIV: No Hx Hepatitis C: No Hx MRSA: No - Vaccination History Hx Tetanus, Diphtheria Vaccination: Yes Hx Influenza Vaccination: Yes Hx Pneumococcal Vaccination: Yes - Social History Hx Tobacco Use: No Hx Chewing Tobacco Use: No Hx Alcohol Use: No Hx Substance Use: No Hx Substance Use Treatment: No Hx Depression: No Hx Physical Abuse: No Hx Emotional Abuse: No Hx Suspected Abuse: No - Female History Patient : No Family Medical History - Family History Mother Family History: Unknown Name: Jazz Puri Age (years): 87 Living Status: Age at (years of age): 87 Cause of : unknown Hx Family Asthma: No Hx Family Congestive Heart Failure: Yes - Parents Hx Family Hypertension: Yes - Parents Hx Family Stroke: No Hx Cardiac Disease: Yes - Parents Hx Family Diabetes: No Hx Family Cancer: No Physical Exam - Physical Exam General Appearance: Alert, No apparent distress, Lethargic Eye Exam: bilateral normal ENT Exam: other - extremely dry oropharynx Neck: non-tender, supple, normal inspection, trachea midline Respiratory: chest non-tender, lungs clear, normal breath sounds, no respiratory distress, no accessory muscle use Cardiovascular/Chest: normal peripheral pulses, regular rate, rhythm, no edema, no gallop, no JVD, systolic murmur - 3 over 4 Gastrointestinal/Abdominal: normal bowel sounds, non tender, no organomegaly, no pulsatile mass Extremity: non-tender, normal inspection, no pedal edema Neurologic: guest relations coordinator II-XII nml as tested, no motor/sensory deficits, alert, normal mood/affect, other - some minor confusion is noted, Skin Exam: normal color, warm/dry, other - tinting of skin poor turgor Lymphatic: no adenopathy Progress - Progress Progress: 05/31/19 17:00 MDM: Patient appears to be a bit lethargic and dehydrated. She has no respiratory distress. She is noted to be achy and have what seems to be myalgias. We will evaluate for infection. We'll get labs and blood cultures. She will have chest x-ray as well. We'll also get a flu test. We'll hydrate her and obtain a lactic acid. We'll repeat if high. May end up needing to observe if there are significant laboratory abnormalities. 05/31/19 17:14 was alerted by the lab that the patient's hemoglobin is 7.8. 05/31/19 18:33 discussed some of the laboratory findings with the patient and her caretakers. Discussed the probable need for admission due to her abnormalities. We still have not been able to obtain a urine and so we will do a straight catheter. We'll update them when possible. 05/31/19 19:56 discussed patient's condition with PEYTON Hdez, HOSPITALIST. AGREES TO ADMIT. - Results/Orders Results/Orders: IMPRESSION: Large heart without congestive failure. Electronically signed by: Tolu Vela MD 05/31/2019 5:13 PM [facility] Laboratory Tests 05/31/19 05/31/19 05/31/19 17:00 17:00 17:00 WBC 6.1 RBC 3.33 L Hgb 7.9 L* Hct 24.9 L MCV 74.8 L MCH 23.7 L MCHC 31.6 L RDW 17.0 H Plt Count 472 H MPV 8.9 Absolute Neuts (auto) 4.00 Absolute Lymphs (auto) 1.00 Absolute Monos (auto) 0.80 Absolute Eos (auto) 0.20 Absolute Basos (auto) 0.10 Neutrophils % 65.6 Lymphocytes % 16.9 L Monocytes % 12.4 H Eosinophils % 3.1 Basophils % 2.0 Normal RBC Morphology Plts kem increased Sodium 130 L Potassium 3.5 L Chloride 96 L Carbon Dioxide 21 Anion Gap 16.5 BUN 11 Creatinine 1.01 BUN/Creatinine Ratio 10.9 Random Glucose 108 H Serum Osmolality 260.7 L Lactic Acid 0.9 Calcium 8.9 Total Bilirubin 0.4 AST 23 ALT 14 Alkaline Phosphatase 52 Serum Total Protein 6.5 Albumin 3.9 Globulin 2.6 Albumin/Globulin Ratio 1.5 influenza A and B both negative Laboratory Tests 05/31/19 05/31/19 05/31/19 17:00 17:00 17:00 WBC 6.1 RBC 3.33 L Hgb 7.9 L* Hct 24.9 L MCV 74.8 L MCH 23.7 L MCHC 31.6 L RDW 17.0 H Plt Count 472 H MPV 8.9 Absolute Neuts (auto) 4.00 Absolute Lymphs (auto) 1.00 Absolute Monos (auto) 0.80 Absolute Eos (auto) 0.20 Absolute Basos (auto) 0.10 Neutrophils % 65.6 Lymphocytes % 16.9 L Monocytes % 12.4 H Eosinophils % 3.1 Basophils % 2.0 Normal RBC Morphology Plts kem increased Sodium 130 L Potassium 3.5 L Chloride 96 L Carbon Dioxide 21 Anion Gap 16.5 BUN 11 Creatinine 1.01 BUN/Creatinine Ratio 10.9 Random Glucose 108 H Serum Osmolality 260.7 L Lactic Acid 0.9 Calcium 8.9 Total Bilirubin 0.4 AST 23 ALT 14 Alkaline Phosphatase 52 Serum Total Protein 6.5 Albumin 3.9 Globulin 2.6 Albumin/Globulin Ratio 1.5 Urine Color Urine Appearance Urine pH Ur Specific [place] Urine Protein Urine Glucose (UA) Urine Ketones Urine Blood Urine Nitrite Urine Bilirubin Urine Urobilinogen Ur Leukocyte Esterase Urine RBC Urine WBC Ur Epithelial Cells Urine Bacteria 05/31/19 18:50 WBC RBC Hgb Hct MCV MCH MCHC RDW Plt Count MPV Absolute Neuts (auto) Absolute Lymphs (auto) Absolute Monos (auto) Absolute Eos (auto) Absolute Basos (auto) Neutrophils % Lymphocytes % Monocytes % Eosinophils % Basophils % Normal RBC Morphology Sodium Potassium Chloride Carbon Dioxide Anion Gap BUN Creatinine BUN/Creatinine Ratio Random Glucose Serum Osmolality Lactic Acid Calcium Total Bilirubin AST ALT Alkaline Phosphatase Serum Total Protein Albumin Globulin Albumin/Globulin Ratio Urine Color Yellow Urine Appearance Sl cloudy Urine pH 6.5 Ur Specific [place] 1.010 Urine Protein Negative Urine Glucose (UA) Negative Urine Ketones Negative Urine Blood Trace-intact H Urine Nitrite Positive H Urine Bilirubin Negative Urine Urobilinogen 0.2 Ur Leukocyte Esterase Negative Urine RBC 0-1 Urine WBC 1-3 Ur Epithelial Cells 0-1 Urine Bacteria 3+ H Departure - Departure Clinical Impression: Hyponatremia with decreased serum osmolality, Lethargy Anemia Qualifiers: Anemia type: unspecified type Qualified Code(s): D64.9 - Anemia, unspecified Dementia Qualifiers: Dementia type: unspecified type Dementia behavioral disturbance: without behavioral disturbance Qualified Code(s): F03.90 - Unspecified dementia without behavioral disturbance UTI (urinary tract infection) Qualifiers: Urinary tract infection type: acute cystitis Hematuria presence: with hematuria Qualified Code(s): N30.01 - Acute cystitis with hematuria Time of Disposition: 19:56 Disposition: Admit Patient Condition: Fair Departure Forms: ED Discharge - Pt. Copy, Patient Portal Self Enrollment Referrals: Pankaj Goetz MD [Primary Care Provider] - 1-2 Weeks Home Medications: Ambulatory Orders Aspirin [Aspirin EC] 81 mg PO DAILY 03/01/15 HYDROcodone 10MG/APAP 325MG [[place] 10/325] 1 tab PO QID PRN 03/01/15 Cyanocobalamin Inj [Vitamin B-12 Inj] 1,000 mcg IM MONTHLY 05/05/16 Pantoprazole Tablet [Protonix] 40 mg PO DAILY 05/05/16 Cephalexin Monohydrate [Keflex] 500 mg PO DAILY 11/10/17 Memantine HCl [Namenda] 5 mg PO DAILY 11/10/17 Naloxegol Oxalate [Movantik] 25 mg PO ACBK 11/10/17 Polyethylene Glycol 3350 [Miralax] 17 gm PO DAILY 11/10/17 Potassium Chloride [Potassium Chloride ER] 8 meq PO DAILY 11/10/17 Multivit-Min W/Fe-FA [ and Iron] 1 tab PO DAILY 11/10/17 Calcium 600 mg PO DAILY 05/19/18 Furosemide 20 mg PO DAILY 05/19/18 Lisinopril 10 mg PO DAILY PRN 05/19/18 Pregabalin [Lyrica] 100 mg PO TID 05/19/18 Probiotic Product [Probiotic] 1 tab PO DAILY 05/19/18 Levofloxacin [Levaquin] 750 mg PO DAILY #7 tablet 05/21/18 Decision To Admit - Decistion To Admit Decision to Admit Reason: Admit from ER Decision to Admit Date: 05/31/19 Decision to Admit Time: 19:56
[2019-05-31] MEDS ORDERED: SODIUM CHLORIDE 0.9% 1000ML 1,000 ML IVS ONE (16:49)
--- NOTE | 2019-05-31 17:14 | RAD ---
EXAM DESCRIPTION: Chest,1 View CLINICAL HISTORY: 88 years Female, fever COMPARISON: Previous chest x-ray February 02, 2019 TECHNIQUE: AP portable chest. FINDINGS: Heart size is large with normal pulmonary vascularity. Sternotomy wires are present. No consolidating infiltrate. No pulmonary mass or worrisome nodule. No pneumothorax or pleural effusion. Bones are unremarkable. IMPRESSION: Large heart without congestive failure. 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
[2019-05-31] MEDS ORDERED: cefTRIAXone SODIUM 1 GM in SODIUM CHL 0.9% 50ML MIN-BAG+ 50 ML IVPB ONE ×2 (19:57→20:14)
[2019-05-31] MEDS ORDERED: cefTRIAXone SODIUM 1 GM VIAL IM ONE (20:07)
[2019-05-31] MEDS ORDERED: HYDROcodone 10MG/APAP 325MG 1 EA TAB PO ONE (20:09)
[2019-05-31] MEDS ORDERED: cefTRIAXone SODIUM 1 GM VIAL ONE (20:22)
[2019-05-31] MEDS ORDERED: SODIUM CHL 0.9% 50ML MIN-BAG+ 50 ML IVPB ONE (20:23)
--- NOTE | 2019-05-31 20:33 | HP ---
SUPERVISING PHYSICIAN: PALBO PEARL MD CHIEF COMPLAINT: Fever and feeling poorly over the last few days. HISTORY OF PRESENT ILLNESS: Ms. Suresh is an 88 year-old female patient who has been feeling poorly over the last several days. 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 Goetz, her primary care physician, about 5 or 6 days ago. At that time, she had a urinary tract infection and he put her on some antibiotics. She has a fairly significant history of chronic urinary tract infections. Her urine did not grow anything at that time. Today in the Emergency Room, her temperature was 98.6, heart rate 68, blood pressure 162/91, respiratory rate 20, oxygen saturation 94% on room air. Lab studies showed a WBC of 6.1 with hemoglobin of 7.9, hematocrit 24.9. Electrolytes showed a sodium of 130, potassium 3.5, chloride 96, serum osmolality 260.7, lactic acid 0.9. Liver enzymes were within normal limits. Her urinalysis showed trace of intact urine blood, positive urine nitrites and 3+ urine bacteria. She was given fluids in the Emergency Room as well as Rocephin and I was called for hospital admission. PAST MEDICAL HISTORY: 1. Chronic anemia. 2. Chronic urinary tract infections. 3. Coronary artery disease with a history of myocardial infarctions. 4. Hyperlipidemia. 5. Hypertension. 6. Aortic valve stenosis. 7. Diverticulosis. 8. Osteoarthritis. 9. Cervical spine stenosis. 10. Mild dementia. 11. Infectious colitis. PAST SURGICAL HISTORY: 1. Coronary artery bypass grafting in 2004 and 2014. 2. Ankle replacement. 3. Hysterectomy. 4. Multiple epidural injections of the spine for chronic pain management. 5. Right knee arthroplasty.. CURRENT MEDICATIONS: Per the EMR and awaiting verification. ALLERGIES: CIPROFLOXACIN. SOCIAL HISTORY: The patient is and lives in [place]. She is retired. She denies tobacco, ETOH or drug use. REVIEW OF SYSTEMS: GENERAL: Positive for fever and fatigue, negative for weight changes. Her temperature reported at home was around 100 to 100.5 HEENT: Negative for sinus symptoms, ear pain, vision changes, sore throat. RESPIRATORY: Negative for coughing, wheezing, shortness of breath CARDIAC: Negative for chest pain, palpitations, tachycardia. GI: Negative for nausea, vomiting, diarrhea. . GENITOURINARY: Positive for frequent urinary tract infections and dysuria. Negative for hematuria or polyuria. SKIN: Negative for lesions or rashes. NEUROLOGICAL: Positive for weakness, negative for headaches or seizures. PHYSICAL EXAMINATION: VITAL SIGNS: Temperature is 99.1, heart rate 76, blood pressure 160/98, respiratory rate 22. Oxygen saturation 92% on room air. GENERAL: This is an 88 year-old female patient who is lying in her hospital bed. Her son is at the bedside, her caregiver is at the bedside. She is in no acute distress. HEENT: Normocephalic and atraumatic. Pupils are equal and reactive. Oropharynx is clear. NECK: Supple without mass. RESPIRATORY: Essentially clear to auscultation bilaterally. CHEST: There is equal rise and fall of the chest with inspiration and expiration. CARDIOVASCULAR: Regular rate and rhythm, she does have a systolic murmur. GASTROINTESTINAL: Abdomen is soft, nondistended, non-tender. Positive bowel sounds. EXTREMITIES: No cyanosis, clubbing, or edema. NEUROLOGIC: She is awake, alert and oriented times three. Cranial nerves II through XII were grossly intact as tested. LABORATORY: Labs are as per the history of present illness. RADIOLOGY: Chest x-ray shows a slightly enlarged heart with no congestive failure. All other labs and films have been reviewed via the EMR. ASSESSMENT: 1. Chronic anemia due to iron deficiency. She has an admitting hemoglobin of 7.9. 2. Recurring urinary tract infection. She was recently on an antibiotic as an outpatient. She also has a history of frequent urinary tract infections. She was treated with an unknown antibiotic at Dr. Goetz's office. 3. Coronary artery disease with a history of myocardial infarctions. 4. Mild dementia. 5. History of chronic hypertension, on medication. 6. History of osteoarthritis. 7. History of chronic back pain. 8. Aortic valve with systolic murmur. PLAN: The patient will be placed in observation. She will receive 2 units of packed red blood cells. I have continued her on Rocephin which she received in the Emergency Room. Her home medications will be restarted when they are verified. I will repeat her lab in the morning. I put her on Lovenox for DVT prophylaxis. She will also be on the air sampling and monitoring and we will continue to monitor closely and follow as needed. #[id number] [facility]
[2019-05-31] MEDS ORDERED: diphenhydrAMINE HCL 50 MG/ML VIAL IV ONE (21:05)
[2019-05-31] MEDS ORDERED: FUROSEMIDE INJ 40 MG/4 ML VIAL IV ONE (21:05)
[2019-05-31] MEDS ORDERED: ACETAMINOPHEN 325 MG TAB PO ONE (21:05)
[2019-05-31] MEDS ORDERED: SODIUM CHLORIDE 0.9% (FLUSH) 10 ML SYG IV PRN (21:12)
[2019-05-31] MEDS ORDERED: ACETAMINOPHEN 325 MG TAB PO PRN (21:12)
[2019-05-31] MEDS ORDERED: SODIUM CHLORIDE 0.9% 500ML 500 ML IVS SCH (21:30)
[2019-05-31] MEDS ORDERED: IV SET AND CAP CHANGE INJ INJ SCH (21:30)
[2019-05-31] MEDS ORDERED: diphenhydrAMINE HCL 50 MG/ML VIAL ONE (23:12)
[2019-06-01] MEDS: ONDANSETRON INJ 4 MG/2 ML VIAL IV PRN ×2 (00:05→09:11)
[2019-06-01] MEDS: HYDROcodone 10MG/APAP 325MG 1 EA TAB PO PRN ×3 (00:09→09:01)
[2019-06-01] MEDS ORDERED: ALPRAZolam 0.25 MG TAB PO PRN ×2 (00:35→08:39)
[2019-06-01] MEDS ORDERED: cefTRIAXone SODIUM 1 GM VIAL ONE (07:33)
[2019-06-01] MEDS ORDERED: SODIUM CHL 0.9% 50ML MIN-BAG+ 50 ML IVPB ONE (07:33)
[2019-06-01 08:03] VITALS: BP 111/79; TEMP 97.4
[2019-06-01] MEDS ORDERED: HYDROcodone 10MG/APAP 325MG 1 EA TAB PO PRN (08:39)
[2019-06-01] MEDS ORDERED: MEMANTINE 10 MG TAB ONE (08:55)
[2019-06-01] MEDS ORDERED: ASPIRIN (ENTERIC COATED) 81 MG TAB PO SCH (09:00)
[2019-06-01] MEDS ORDERED: GABAPENTIN 100 MG CAP PO SCH ×2 (09:00→21:00)
[2019-06-01] MEDS ORDERED: POTASSIUM CHLORIDE 8 MEQ TAB PO SCH (09:00)
[2019-06-01] MEDS ORDERED: NON-FORMULARY MEDICATION 1 EA MIS (Memantine Hcl [Namenda] 5 MG) PO SCH (09:00)
[2019-06-01] MEDS ORDERED: PANTOPRAZOLE SODIUM TAB 40 MG PO SCH (09:00)
[2019-06-01] MEDS ORDERED: cefTRIAXone SODIUM 1 GM in SODIUM CHL 0.9% 50ML MIN-BAG+ 50 ML IVPB SCH (09:00)
[2019-06-01] MEDS ORDERED: SODIUM CHLORIDE 0.9% (FLUSH) 10 ML SYG IV SCH (09:00)
[2019-06-01] MEDS ORDERED: NALOXEGOL OXALATE 25 MG PO SCH (09:00)
[2019-06-01] MEDS ORDERED: POLYETHYLENE GLYCOL 3350 17 GM PCKT PO SCH (09:00)
[2019-06-01 11:39] VITALS: O2SAT 92
--- NOTE | 2019-06-01 14:43 | DS ---
SUPERVISING PHYSICIAN: PABLO PEARL MD ADMISSION DIAGNOSES: 1. Chronic anemia due to iron deficiency requiring transfusion of 2 units of packed red blood cells with improvement. 2. Recurring urinary tract infection. She was recently on an antibiotic as an outpatient. She also has a history of frequent urinary tract infections. She was treated with an unknown antibiotic at Dr. Goetz's office. 3. Coronary artery disease with a history of myocardial infarctions. 4. Mild dementia. 5. History of chronic hypertension, on medication. 6. History of osteoarthritis. 7. History of chronic back pain. 8. Aortic valve with systolic murmur. DISCHARGE DIAGNOSES: 1. Chronic anemia due to iron deficiency requiring transfusion of 2 units of packed red blood cells with improvement. 2. Recurring urinary tract infection on current antibiotics, has finished Bactrim.. 3. Coronary artery disease with a history of myocardial infarctions. 4. Mild dementia. 5. History of chronic hypertension, on medication. 6. History of osteoarthritis. 7. History of chronic back pain. 8. Aortic valve with systolic murmur. REASON FOR HOSPITALIZATION: Ms. Suresh is an 88 year-old female patient who has been feeling poorly over the last several days. 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 Goetz, her primary care physician, about 5 or 6 days ago. At that time, she had a urinary tract infection and he put her on some antibiotics. She has a fairly significant history of chronic urinary tract infections. Her urine did not grow anything at that time. Today in the Emergency Room, her temperature was 98.6, heart rate 68, blood pressure 162/91, respiratory rate 20, oxygen saturation 94% on room air. Lab studies showed a WBC of 6.1 with hemoglobin of 7.9, hematocrit 24.9. Electrolytes showed a sodium of 130, potassium 3.5, chloride 96, serum osmolality 260.7, lactic acid 0.9. Liver enzymes were within normal limits. Her urinalysis showed trace of intact urine blood, positive urine nitrites and 3+ urine bacteria. She was given IV fluids in the Emergency Room and Rocephin and was placed in observation in stable condition. LABORATORY: hemoglobin on admission 7.9 and hematocrit 24.9. After 2 units of packed red blood cells, hemoglobin was 11.7 and hematocrit 36.9. Platelet count was at 451,000. Differential showed to be without a left shift. White count on discharge was 9,100. Chemistries did show a sodium of 130, potassium 3.5. All other electrolytes were within normal limits with a creatinine of 1.0. Liver functions were all within normal limits. Lactic acid 0.9. At discharge, sodium had improved to 134, potassium 4.1. Urinalysis showed just a trace of blood, positive nitrites with 3+ bacteria. MICROBIOLOGY: Urine culture pending. RADIOLOGY: No radiographic studies other than a chest x-ray on admission and per radiology interpretation of single view showed an enlarged heart without congestive failure. HOSPITAL COURSE: Ms. Suresh was admitted for anemia, dehydration and hyponatremia. She was given fluids, 2 units of packed red blood cells and showed good improvement both on her labs and her clinical assessment. It was noted that she was showing to be clinically improved and stable enough to discharge and manage as an outpatient. She was given 2 doses of Rocephin while in the hospital and just finished a course o Bactrim. Cultures are pending. DISCHARGE ASSESSMENT: VITAL SIGNS: Temperature 97.4, pulse 71, blood pressure 111/79, respirations 16, oxygen saturation 95% on room air. GENERAL: The patient is resting comfortably, she is alert. CHEST: Clear to auscultation. HEART: Regular rate and rhythm. ABDOMEN: Soft, non-tender, positive bowel sounds. EXTREMITIES: Without edema. NEUROLOGIC: She is alert to herself, her family and location. The patient's family at bedside reports that she is at her baseline mental status. PLAN: Ms. Suresh was discharged with instructions to followup with Dr. Goetz this next week, to call his office for an appointment. She is to resume her home medications as prior to hospitalization. She is to resume normal diet as tolerated. Activities: Increase as tolerated. No new medications prescribed on discharge. CONDITION ON DISCHARGE: Stable and improved. DISPOSITION: The patient is discharged to care of family members and home health. #[id number] [facility]
[2019-06-01] MEDS ORDERED: ENOXAPARIN SODIUM 40 MG/0.4 ML SYG SUBCU SCH (21:00)
[2019-06-02] MEDS ORDERED: PANTOPRAZOLE SODIUM TAB 40 MG PO SCH (06:30)
[2019-06-02] MEDS ORDERED: POTASSIUM CHLORIDE 8 MEQ TAB PO SCH (07:30)
[2019-06-02] MEDS ORDERED: MEMANTINE 10 MG TAB PO SCH (09:00)
== END 2019-06-01 11:30 | disposition home health service (06) ==
LOC: ER 16:17 → MS 20:32
PROVIDERS: ADMIT Nurse Practitioner Acute Care; ATTEND Nurse Practitioner Family
DX: D50.9 Iron deficiency anemia, unspecified (principal); N39.0 Urinary tract infection, site not specified; B96.89 Other specified bacterial agents as the cause of diseases classified elsewhere; E87.1 Hypo-osmolality and hyponatremia; E86.0 Dehydration; I25.10 Atherosclerotic heart disease of native coronary artery without angina pectoris; I25.2 Old myocardial infarction; F03.90 Unspecified dementia, unspecified severity, without behavioral disturbance, psychotic disturbance, mood disturbance, and anxiety; I11.9 Hypertensive heart disease without heart failure; M19.90 Unspecified osteoarthritis, unspecified site; G89.29 Other chronic pain; R01.1 Cardiac murmur, unspecified; E78.5 Hyperlipidemia, unspecified; I35.0 Nonrheumatic aortic (valve) stenosis; K57.30 Diverticulosis of large intestine without perforation or abscess without bleeding; M48.02 Spinal stenosis, cervical region; K21.9 Gastro-esophageal reflux disease without esophagitis; Z79.82 Long term (current) use of aspirin; Z79.899 Other long term (current) drug therapy; Z87.440 Personal history of urinary (tract) infections; Z95.1 Presence of aortocoronary bypass graft; Z90.710 Acquired absence of both cervix and uterus; Z82.49 Family history of ischemic heart disease and other diseases of the circulatory system
CPT/HCPCS: 51701; 96365; 96375; 96376; J0696 ×2; J1940; J2405 ×2; J7040; J7030; J7050 ×2; 80053 ×2; 87086; 36415 ×3; 81001; 85025 ×2; 87040 ×2; 83605; 71045; 86922; 86900; 86901; 86850; 94760 ×2; 99285; 87502

== ENCOUNTER 2019-06-03 11:54 | Emergency (ER) | payer MEDICARE, BC ==
[2019-06-03] MEDS ORDERED: SODIUM CHLORIDE 0.9% (FLUSH) 10 ML SYG IV PRN (12:31)
[2019-06-03] MEDS ORDERED: SODIUM CHLORIDE 0.9% 1000ML 1,000 ML IVS PRN (12:31)
[2019-06-03] MEDS ORDERED: MORPHINE SULFATE INJ 10 MG/ML VIAL IV ONE ×2 (12:32→15:24)
[2019-06-03] MEDS ORDERED: ONDANSETRON INJ 4 MG/2 ML VIAL IV ONE (12:32)
--- NOTE | 2019-06-03 12:37 | ED.PDOC ---
History of Present Illness - General Chief Complaint: General Stated Complaint: right sided neck pain Time Seen by Provider: 06/03/19 12:08 - History of Present Illness Initial Comments: Patient presents to the ED for right sided neck pain, dehydration. The patient is unable to provide much history due to her severe dementia. She presents to the ED with her caregivers. PMH is significant for CAD, DM, neuropathy, diverticulitis and severe dementia. Her caregiver states that she was recently admitted to the hospital for fatigue, not feeling well. She was hydrated and given a blood transfusion for chronic anemia, she was discharged home two days ago. overall she has not been feeling well for the past week. She only complains of right sided neck pain. Her marine pilot states that her pain is chronic over past few years. They are concerned that she is no longer taking her oral medications and she is not eating or drinking well. They report that the patient's son has been trying to get her initiated on hospice care and they would like assistance with this while she is in the ED. No other history is available at this time. Allergies/Adverse Reactions: Allergies Ciprofloxacin [From Cipro] Allergy (Verified 05/31/19 23:27) Nausea Home Medications: Ambulatory Orders Aspirin [Aspirin EC] 81 mg PO DAILY 03/01/15 HYDROcodone 10MG/APAP 325MG [[place] 10/325] 1 tab PO QID PRN 03/01/15 Cyanocobalamin Inj [Vitamin B-12 Inj] 1,000 mcg IM MONTHLY 05/05/16 Pantoprazole Tablet [Protonix] 40 mg PO DAILY 05/05/16 Cephalexin Monohydrate [Keflex] 500 mg PO DAILY 11/10/17 Memantine HCl [Namenda] 5 mg PO DAILY 11/10/17 Naloxegol Oxalate [Movantik] 25 mg PO DAILY 11/10/17 Polyethylene Glycol 3350 [Miralax] 17 gm PO DAILY 11/10/17 Potassium Chloride [Potassium Chloride ER] 8 meq PO DAILY 11/10/17 Multivit-Min W/Fe-FA [ and Iron] 1 tab PO DAILY 11/10/17 Calcium 600 mg PO DAILY 05/19/18 Furosemide 20 mg PO DAILY 05/19/18 Lisinopril 10 mg PO DAILY PRN 05/19/18 Probiotic Product [Probiotic] 1 tab PO DAILY 11/15/18 Alprazolam 0.25 mg PO TID PRN 05/31/19 Gabapentin 100 mg PO DAILY 05/31/19 Gabapentin 200 mg PO BEDTIME 05/31/19 Ondansetron Odt [Zofran Odt] 8 mg PO Q6H PRN 05/31/19 Review of Systems - Review of Systems Unable to Obtain Due To: dementia Past Medical History (General) - Patient Medical History Hx Seizures: No Hx Stroke: No Hx Dementia: Yes Hx Asthma: No Hx of COPD: Yes Hx Cardiac Disorders: Yes - MA with CABG Hx Congestive Heart Failure: No Hx Pacemaker: No Hx Hypertension: Yes Hx Thyroid Disease: No Hx Diabetes: No Hx Gastroesophageal Reflux: Yes Hx Renal Disease: No Hx Cancer: No Hx of HIV: No Hx Hepatitis C: No Hx MRSA: No - Vaccination History Hx Tetanus, Diphtheria Vaccination: Yes Hx Influenza Vaccination: Yes Hx Pneumococcal Vaccination: Yes - Social History Hx Tobacco Use: No Hx Chewing Tobacco Use: No Hx Alcohol Use: No Hx Substance Use: No Hx Substance Use Treatment: No Hx Depression: No Hx Physical Abuse: No Hx Emotional Abuse: No Hx Suspected Abuse: No - Female History Patient is a Female of Child Bearing Age (10 -59 yrs old): No Patient : No Family Medical History - Family History Father Living Status: Cause of : CHF Hx Cardiac Disease: Yes Mother Family History: Unknown Name: Jazz Puri Age (years): 87 Living Status: Age at (years of age): 87 Cause of : unknown Hx Family Asthma: No Hx Family Congestive Heart Failure: Yes - Parents Hx Family Hypertension: Yes - Parents Hx Family Stroke: No Hx Cardiac Disease: Yes - Parents Hx Family Diabetes: No Hx Family Cancer: No Physical Exam - Physical Exam General Appearance: Agitated, Frail, No apparent distress Ears, Nose, Throat: normal ENT inspection Neck: non-tender, supple, normal inspection Respiratory: lungs clear, normal breath sounds, no respiratory distress Cardiovascular/Chest: regular rate, rhythm Gastrointestinal/Abdominal: non tender, soft Neurologic: no motor/sensory deficits Progress - Progress Progress: 06/03/19 15:25 Have discussed with [facility], will come to ED to evaluate 06/03/19 16:15 contacted [facility], will evaluate patient at home tomorrow. Her pain is currently controlled and she is able to take oral medications. Caretakers are comfortable continuing to manage the patient at home. 06/03/19 17:55 MDM: Patient brought in by marine pilot after not taking oral medications, chronic pain. Recently admitted, discharged two days ago. patient's family wants hospice care. Workup as above. Contacted hospice who will meet patient at home for enrollment. Home care instructions and return indications reviewed. - Results/Orders Results/Orders: Laboratory Results - last 24 hr 06/03/19 06/03/19 12:41 12:41 WBC 5.4 RBC 4.25 Hgb 12.4 Hct 38.1 MCV 89.5 MCH 29.2 MCHC 32.6 L RDW 14.2 Plt Count 90 L D MPV 8.9 Absolute Neuts (auto) 4.90 Absolute Lymphs (auto) 0.30 L Absolute Monos (auto) 0.20 Absolute Eos (auto) 0.00 Absolute Basos (auto) 0.00 Neutrophils % 90.3 H Lymphocytes % 4.7 L Monocytes % 4.5 Eosinophils % 0.2 L Basophils % 0.3 Sodium 138 Potassium 3.6 Chloride 102 Carbon Dioxide 25 Anion Gap 14.6 BUN 16 Creatinine 0.65 BUN/Creatinine Ratio 24.6 H Random Glucose 115 H Serum Osmolality 277.8 Calcium 8.7 Departure - Departure Clinical Impression: Generalized pain Time of Disposition: 16:16 Disposition: Discharge to Home or Self Care Condition: Good Departure Forms: ED Discharge - Pt. Copy, Patient Portal Self Enrollment Instructions: DI for Cervical Muscle Strain, DI for Neck Pain Diet: resume usual diet Activity: increase activity as tolerated Referrals: Pankaj Goetz MD [Primary Care Provider] - 1-2 Weeks Home Medications: Ambulatory Orders Aspirin [Aspirin EC] 81 mg PO DAILY 03/01/15 HYDROcodone 10MG/APAP 325MG [[place] 10/325] 1 tab PO QID PRN 03/01/15 Cyanocobalamin Inj [Vitamin B-12 Inj] 1,000 mcg IM MONTHLY 05/05/16 Pantoprazole Tablet [Protonix] 40 mg PO DAILY 05/05/16 Cephalexin Monohydrate [Keflex] 500 mg PO DAILY 11/10/17 Memantine HCl [Namenda] 5 mg PO DAILY 11/10/17 Naloxegol Oxalate [Movantik] 25 mg PO DAILY 11/10/17 Polyethylene Glycol 3350 [Miralax] 17 gm PO DAILY 11/10/17 Potassium Chloride [Potassium Chloride ER] 8 meq PO DAILY 11/10/17 Multivit-Min W/Fe-FA [ and Iron] 1 tab PO DAILY 11/10/17 Calcium 600 mg PO DAILY 05/19/18 Furosemide 20 mg PO DAILY 05/19/18 Lisinopril 10 mg PO DAILY PRN 05/19/18 Probiotic Product [Probiotic] 1 tab PO DAILY 05/19/18 Alprazolam 0.25 mg PO TID PRN 05/31/19 Gabapentin 100 mg PO DAILY 05/31/19 Gabapentin 200 mg PO BEDTIME 05/31/19 Ondansetron Odt [Zofran Odt] 8 mg PO Q6H PRN 05/31/19 Comments: Costa Greenwood MD Emergency Medicine Physician Number [id number]
[2019-06-03] MEDS ORDERED: ACETAMINOPHEN 325 MG TAB PO ONE (16:04)
[2019-06-03 16:46] VITALS: BP 160/108; TEMP 98.1; O2SAT 94
== END 2019-06-03 16:45 | disposition home or self-care (01) ==
LOC: ER 11:54
DX: M54.2 Cervicalgia (principal); G89.29 Other chronic pain; F03.90 Unspecified dementia, unspecified severity, without behavioral disturbance, psychotic disturbance, mood disturbance, and anxiety; D64.9 Anemia, unspecified; J44.9 Chronic obstructive pulmonary disease, unspecified; I25.2 Old myocardial infarction; I10 Essential (primary) hypertension; K21.9 Gastro-esophageal reflux disease without esophagitis; Z95.1 Presence of aortocoronary bypass graft; Z79.899 Other long term (current) drug therapy; Z79.82 Long term (current) use of aspirin; Z88.1 Allergy status to other antibiotic agents
CPT/HCPCS: 36415; 80048; 85025; J2270; J2405; J7030